=== PATIENT | male | born 1940 | race Caucasian/White ===

== ENCOUNTER 2017-08-03 21:27 | Inpatient (IN) | payer MEDICARE, OTHER ==
[~2017-08-03] VITALS: Ht 188 cm; Wt 104.6 kg
--- NOTE | ~2017-08-03 | HEMODYNAMI ---
PATIENT:NICOLAS BYERS MEDICAL RECORD: [id number] : 42 LOCATION:[place] [address] ADMISSION DATE: 08/04/17 Generatedon:08/07/201713:58 Patient name: NICOLAS BYERS Patient #: [id number] SSN: : 1940 Date of study: 08/07/2017 Page: Of Hemodynamic Procedure Report Patient Data Patient Demographics Procedure consent was obtained First Name: NICOLAS Gender: Male Last Name: ZEESHAN : 1940 Middle Initial: TIERNEY Age: 77 year(s) Patient #: [id number] Race: Unknown Additional ID: [id number] Contact details [address]: [address] [place] [address] State: [place] City: [place] Zip code: [address] Past Medical History Allergies: No known allergies Admission Admission Data Admission Date: 08/04/2017 Admission Time: 0:50 Admit Source: Other Room #: D.2134 Height (in.): 73.62 BSA: 2.16 (m2) Height (cm.): 187 BMI: 25.74 (kg/m2) Weight (lbs.): 198.42 Weight (kg.): 90 Procedure Procedure Types Cath Procedure Diagnostic Procedure PPM/ICD Permanent Pacer Generator Exg. Miscellaneous Procedures Moderate Sedation up to 15 minutes Procedure Description Procedure Date Procedure Date: 08/07/2017 Procedure Start Time: 13:27 Procedure Staff Name Function Ceferino Quiros MD Performing Physician Terese Patel RT Scrub Desiree Stanley RT Monitor Jonna Ellis RN Nurse Farrukh Obando MD Performing Physician Procedure Medications Medication Administration Route Dosage Oxygen NC 2 l/min Bupivacaine 0.5% S.Q. ml Ancef Irrigation Topical 1 g (1gm/500ml NS) Ancef (1Gm/50ml NS) I.V.P.B 1 g Fentanyl I.V. 25 mcg Versed I.V. 1 mg Fentanyl I.V. 25 mcg Zofran I.V. 4 mg Hemodynamics Rest BSA: 2.16 (m2) O2 Consumption: Estimated: 242.86 (ml/min) O2 Consumption indexed : Estimated:112.44 (ml/min/m) Heart Rate: 64 (bpm) Snapshots Pre Cath Intra NCS Post Cath Vital Signs Time Heart Resp SPO2 NIBP (mmHg) Rhythm Pain Sedation Rate (ipm) (%) Status Level (bpm) 13:12:41 65 18 94 159/83(133) NSR 0 (11) 10(A) , No pain 13:17:09 65 18 96 144/83(123) NSR 0 (11) 9(A) , No pain 13:21:33 65 19 97 137/84(122) NSR 0 (11) 9(A) , No pain 13:25:56 65 16 98 148/82(123) NSR 0 (11) 9(A) , No pain 13:30:20 75 16 97 144/85(120) NSR 0 (11) 9(A) , No pain 13:35:29 60 16 86 180/103(156) NSR 0 (11) 9(A) , No pain 13:40:08 60 20 98 193/99(149) NSR 0 (11) 9(A) , No pain 13:44:30 60 16 100 160/93(143) NSR 0 (11) 9(A) , No pain 13:50:18 61 16 100 184/98(159) NSR 0 (11) 9(A) , No pain 13:54:18 61 17 No Cuff NSR 0 (11) 9(A) , No pain 13:58:17 No Cuff NSR 0 (11) 9(A) , No pain Medications Time Medication Route Dose Verified Delivered Reason Notes Effective ness by by 13:16:22 Oxygen NC 2 Jonna Jonna used for l/min Ellis Ellis end polisher RN 13:16:47 Bupivacaine S.Q. ml Jonna Jonna used for 0.5% Ellis Ellis end polisher RN 13:19:24 Ancef Topical 1 g Jonna Jonna used for Irrigation Ellis Ellis procedure (1gm/500ml RN RN NS) 13:25:27 Ancef I.V.P.B 1 g Jonna Jonna Per (1Gm/50ml Ellis Ellis physician NS) RN RN 13:28:06 Fentanyl I.V. 25 Jonna Jonna for mcg Ellis Ellis sedation RN RN 13:28:19 Versed I.V. 1 mg Jonna Jonna for Ellis Ellis sedation RN RN 13:33:23 Fentanyl I.V. 25 Jonna Jonna for mcg Ellis Ellis sedation RN RN 13:40:24 Zofran I.V. 4 mg Jonna Jonna Per Rhonda Ellis physician RN toll bridge operator Log Time Note 12:51:58 Patient Height : 73.62 inches 12:52:02 Patient Weight : 198.42 lbs 12:52:06 Admit Source: Other 12:53:13 Diagnostic Cath status Elective 12:53:16 Desiree Stanley RT(R) sent for patient. Start room use. 12:53:17 Time tracking: Regular hours 12:53:23 Plan of Care:Hemodynamics will remain stable., Cardiac rhythm will remain stable., Comfort level will be maintained., Respiratory function will remain adequate., Patient/ family verbilizes understanding of procedure., Procedure tolerated without complication., Recovers from procedure without complications.. 12:53:40 Medtronic Adapta PPM Single Generator [id number] opened to sterile field. 13:07:36 Patient received from Med II to CCL 3 Alert and oriented. Tansferred to table in Supine position. 13:07:37 Warm blankets applied, and janet hugger turned on for patient comfort. 13:07:38 Correct patient and procedure confirmed by team. 13:07:39 Signed procedure consent form obtained from patient. 13:07:41 ECG and BP/O2 sat monitors applied to patient. 13:11:14 Vital chart was started 13:11:21 Baseline sample Acquired. 13:11:29 Full Disclosure recording started 13:11:56 H&P Date Dictated: 08/03/2017 Within 30 days and on chart.. 13:11:58 Pre-procedure instructions explained to patient. 13:11:59 Family in waiting room. 13:12:01 Patient NPO since Midnight. 13:12:09 Patient allergic to No known allergies 13:12:12 Is the patient allergic to Iodine/contrast media? No. 13:12:14 Is patient on blood thinner?Yes 13:12:18 ACC The patient was administered the following blood thiners within the last 24 hours: Xarelto 13:12:25 Patient diabetic? Yes. 13:12:26 If diabetic: On Metformin? Yes 13:12:53 Snore? Yes 13:12:55 Sleep apnea? No 13:13:03 Dentures? No ? 13:13:08 Patient pain scale 0/10 ?. 13:13:14 IV patent on arrival in left hand with 0.9% NaCl at O. 13:13:18 Lab results completed and on chart. 13:13:26 Left chest area was prepped with chlora-prep and draped in sterile fashion 13:13:27 Alarms reviewed by R. N. 13:13:28 Sharps counted by scrub and verified by R.N. 13:13:28 Physician paged 13:13:29 Physician arrived 13:13:30 --------ALL STOP TIME OUT------ 13:13:30 Final Timeout: patient, procedure, and site verified with staff and physician. All members of the team are in agreement. 13:13:34 Left chest site verified by team. 13:13:40 Sedation plan: IV Moderate Sedation Versed, Fentanyl 13:16:22 Oxygen 2 l/min NC was administered by Jonna Ellis RN; used for procedure; 13:16:47 Bupivacaine 0.5% ml S.Q. was administered by Jonna Ellis RN; used for procedure; 13:17:34 Use device set Pacemaker Set 13:19:24 Ancef Irrigation (1gm/500ml NS) 1 g Topical was administered by Jonna Ellis RN; used for procedure; 13:23:10 Cautery Tip [employer] Porter opened to sterile field. 13:23:11 Cautery Pushbutton Pencil opened to sterile field. 13:23:16 3.0 Vicryl Multipack [id number] opened to sterile field. 13:23:17 3.0 Vicryl Single Pack [id number] opened to sterile field. 13:23:21 2.0 Silk [id number] opened to sterile field. 13:24:54 Medtronic nutrition representative MARCUS CONLEYOE present for procedure. 13:25:27 Ancef (1Gm/50ml NS) 1 g I.V.P.B was administered by Jonna Ellis RN; Per physician; 13:27:35 Pre sharps counted by scrub and verified by RN: Sutures: 14 Sponges: 5 Stick needles: 0 Skin needles: 2 Blade: 1 Cautery: 1 13:27:40 Procedure started. 13:27:53 Grounding pad site Left thigh. 13:27:55 Grounding pad site free from injury. 13:28:06 Fentanyl 25 mcg I.V. was administered by Jonna Ellis RN; for sedation; 13:28:06 Lidocaine 1% w/epi and Bupivacaine 0.5% to left subclavicular area by Farrukh Obando MD. 13:28:19 Versed 1 mg I.V. was administered by Jonna Ellis RN; for sedation; 13:28:36 Incision made to left subclavicular area. 13:28:43 Generator pocket made/opened. 13:33:23 Fentanyl 25 mcg I.V. was administered by Jonna Ellis RN; for sedation; 13:40:24 Zofran 4 mg I.V. was administered by Jonna Ellis RN; Per physician; 13:42:11 Ventricular lead tested. 13:42:37 PPM Single was attached to lead(s) and inserted into pocket. 13:42:43 PPM Single was inserted subcutaneously to left chest. 13:42:50 Device pocket was irrigated with Ancef. 13:43:34 Subcutaneous closure was completed with 3-0 vicryl plus. 13:43:44 Skin closure was completed with 3-0 vicryl. 13:56:26 Parameters-- Generator: Mode: vvir. Lower Rate: 60bpm. Upper Rate: 130bpm. 13:57:07 Parameters--Ventricular P/R Wave: 8.1mV. Current: .5mA; Threshold: .5V; Impedence: 688OHMS. 13:57:12 Lt Chest incision was dressed with Mepilex dressing. 13:58:36 Vital chart was stopped Device Usage Item Name Manufacture Quantity Catalog Hospital Part Current Minimal Lot # / Number Charge Number Stock Stock Serial# Code Medtronic Medtronic 1 [id number] [id number] 5 Adapta PPM [id number] Single EXP .0 Generator 09/30 ADSR01 Cautery Microtek 1 [id number] [id number] 5 [employer] Autom[employer] Porter Cautery Microtek 1 [id number] [id number] [facility]. Pencil 3.0 Vicryl Ethicon 1 [id number] [id number] 529268 5 Multipack [id number] 3.0 Vicryl Ethicon 1 [id number] 104489 162023 5 Single Pack [id number] 2.0 Silk Ethicon 1 [id number] 66853 092315 5 685H Signature [place] Stage Time Signature Unsigned Intra-Procedure 08/07/2017 Desiree Stanley 1:58:33 PM RT(R) Signatures Monitor : Desiree Stanley Signature : RT Date : Time : [place] [address] [place] [address]
[~2017-08-03 21:27] MED LIST: AUGMENTIN 875-11 TAB PO; BAYER CHEWABLE81 MG PO; COUMADIN3 MG PO; COUMADIN4 MG; COUMADIN4 MG PO; DOXYCYCLINE HY100 M2 PO; GLUCOPHAGE1000 MG PO; HYDROCODONE-APA1 TAB PO; LANTUS INSULIN10 ML SC; LASIX20 MG PO; METOPROLOL TAR100 M1 PO; PLAVIX75 MG PO; PRAVACHOL40 MG PO; PRINIVIL20 MG PO; RESTORIL7.5 MG PO; ULTRAM50 MG PO; ZANTAC150 MG PO
[2017-08-03 22:35] LABS: BASOPHILS 0.2 % (0-2); EOSINOPHILS 2.8 % (0-7); HEMATOCRIT 43.1 % (42.0-54.0); HEMOGLOBIN 14.7 g/dL (13.5-17.5); IMMATURE GRANULOCYTES 0.4 % (0-5); LYMPHOCYTES 13.5 % (15-50); MCH 31.3 pg (26.0-34.0); MCHC 34.1 g/dL (31.0-37.0); MCV 91.9 fL (80.0-100.0); MEAN PLATELET VOLUME 10.4 fL (7.4-10.4); MONOCYTES 7.6 % (2-11); NEUTROPHILS 75.5 % (40-80); PLATELET COUNT 148 10x3/uL (130-400); RBC 4.69 10x6/uL (4.20-6.10); RDW 13.6 % (11.5-14.5); WBC 9.3 10x3/uL (4.8-10.8)
[2017-08-03 22:50] LABS: ALBUMIN 3.9 g/dL (3.4-5.0); ALKALINE PHOSPHATASE 49 U/L (46-116); ALT (SGPT) 29 U/L (10-68); CALC OSMOLALITY 285 mosm/kg (275-300); CALCIUM 9.2 mg/dL (8.5-10.1); CHLORIDE - SERUM 102 mmol/L (98-107); CREATININE - SERUM 0.9 mg/dL (0.6-1.3); MAGNESIUM - SERUM 1.8 mg/dL (1.8-2.4); PROTEIN - SERUM 7.8 g/dL (6.4-8.2); SODIUM 137 mmol/L (136-145); UREA NITROGEN 21 mg/dL (7-18); eGFR NON AFRICAN AMERICAN 87 mL/min (90-120)
[2017-08-03 22:52] LABS: GLUCOSE 258 mg/dL (74-106)
[2017-08-03 22:53] LABS: POTASSIUM - SERUM 5.8 mmol/L (3.5-5.1)
[2017-08-04 00:15] LABS: APPEARANCE CLEAR (CLEAR); BILIRUBIN NEGATIVE (NEGATIVE); COLOR YELLOW (YELLOW); GLUCOSE 1000 mg/dL (NEGATIVE); KETONE SMALL mg/dL (NEGATIVE); NITRITE NEGATIVE (NEGATIVE); PROTEIN 1+ mg/dL (NEGATIVE); UROBILINOGEN NORMAL (NORMAL)
[2017-08-04 00:22] LABS: AMORPHOUS SEDIMENT <1+ /lpf (NONE SEEN); BACTERIA MODERATE /hpf (NONE SEEN); EPITHELIAL CELLS 0-5 /hpf (0-5); GRANULAR CAST RARE /lpf (NONE SEEN); HYALINE CAST RARE /lpf (NONE SEEN); WHITE CELLS - URINE 0-5 /hpf (0-5)
[2017-08-04 00:27] LABS: CREATINE KINASE 246 UL (21-232); PRO BNP 1157 pg/mL (0-450)
[2017-08-04 00:30] LABS: TROPONIN-I < 0.017 ng/mL (0.000-0.060)
--- NOTE | 2017-08-04 01:36 | NUR ---
RECEIVED REPORT FROM SUJEY LOMAX, FROM ER, PT IS WITH HIM, PT IS ONLY ALERT TO PERSON, SAID EMT HAD PT HOME MEDS, WAITING FOR SUJEY LOMAX TO CALL BACK, 02-2L, IV-R.HAND, PLACED ON TATY ALARM, BED IS LOW, SRX2, CALL LIGHT IN REACH, IS STAYING THE NIGHT
--- NOTE | 2017-08-04 03:25 | NUR ---
PT SLEEPING, AT BEDSIDE, TATY ALARM IS ON, FALL BRACLET AND SOCKS ARE ON, WILL CONTINUE PLAN OF CARE, CALL LIGHT IN REACH
[2017-08-04 05:06] VITALS: BP 131/64
[2017-08-04 06:01] VITALS: BMI 25.7
[2017-08-04 07:02] LABS: INR 3.78 (0.85-1.17); PROTIME 37.8 SECONDS (11.6-15.0)
--- NOTE | 2017-08-04 07:15 | NUR ---
RECIEVED REPORT ON PATIENT, PATIENT IS SLEEPING AT THIS TIME, NAD NOTED. CHEST RISES AND FALLS EQUALLY. PATIENT IS AT BEDSIDE. PATIENT HAS A R HAND IV THAT IS SL AT THIS TIME. VILLANUEVA CATHETER IS SECURE WITH STAT LOCK, AND DRAINING YELLOW URIEN IN DRAINAGE BAG. DENIES ANY NEEDS. BED LOW AND LOCKED. CPOC
[2017-08-04 08:00] VITALS: BP 127/66
--- NOTE | 2017-08-04 09:15 | NUR ---
MORNING MEDICATIONS GIVEN, HUMULIN GIVEN LATE DUE TO PHARMACY JUST BRING UP. FSBS WAS 265, 6 UNITS GIVEN. PATIENT DENIES ANY NEEDS. CPOC
--- NOTE | 2017-08-04 11:30 | NUR ---
FSBS 303, 8 UNITS OF HUMULIN GIVEN. PATIENT SITTING UP IN CHAIR AT THIS TIME. DENIES ANY NEEDS. CPOC
[2017-08-04 12:00] VITALS: BP 116/66
--- NOTE | 2017-08-04 12:30 | NUR ---
PATIENT SITTING UP IN CHAIR, ASKED IF PATIENT WAS READY BACK FOR BED, HE STATED HE WAS FINE. CPOC
--- NOTE | 2017-08-04 14:09 | NUR ---
IV RESITED TO L HAND, 20 G, 2 ATTEMPTS. CPOC
--- NOTE | 2017-08-04 14:44 | NUR ---
PATIENT REFUSING TO WEAR SCDS AT THIS TIME. CPOC
[2017-08-04 16:00] VITALS: BP 107/73
--- NOTE | 2017-08-04 16:00 | NUR ---
PATIENT SITTING UP IN CHAIR, FAMILY AT BEDSIDE. DENIES ANY NEEDS. CPOC
--- NOTE | 2017-08-04 17:42 | NUR ---
PATIENT SITTING IN CHAIR AT BEDSIDE WITH FAMILY MEMBERS PRESENT. DRESSING REMOVED FROM LEFT FOREARM. SKIN TEAR CLEANED AND MEPILEX DRESSING APPLIED. NO COMPLAINTS OR REQUESTS AT THIS TIME. CPOC
--- NOTE | 2017-08-04 18:00 | NUR ---
PATIENT GOT NAUSEATAED AND STATES HE DOESN'T FEEL WELL, ZOFRAN GIVEN, BP CHECKED 104/53, PATIENT PUT ON TELEMETRY. FSBS 221, WILL CONT OTMONITOR PATIENT. FAMILY AT BEDSIDE
--- NOTE | 2017-08-04 18:24 | NUR ---
VILLANUEVA CATHETER PULLED. NO ISSUES. CPOC
--- NOTE | 2017-08-04 19:48 | NUR ---
RESUMED CARE OF PT, LYING IN BED WITH EYES CLOSED RESPIRATIONS EVEN AND UNLABORED ON ROOM AIR. 65 PACED ON TELEMETRY. CALL LIGHT IN REACH, TATY ALARM ON. WILL CONTINUE TO MONITOR. SEE NURSE ASSESSMENT.
[2017-08-04 20:00] VITALS: BP 117/64
--- NOTE | 2017-08-04 22:18 | NUR ---
NIGHT MEDS GIVEN, 4 UNIT OF REGULAR AND 10 UNITS LANTUS FOR A FSBS OF 205. CALL LIGHT IN REACH. WILL CONTINUE TO MONITOR.
[2017-08-05] VITALS: BP 99/36
--- NOTE | 2017-08-05 01:31 | NUR ---
IVPB INITIATED. IV IS POSITIONAL, BUT PATENT. CALL LIGHT IN REACH. WILL CONTINUE TO MONITOR.
--- NOTE | 2017-08-05 05:27 | NUR ---
NO CHANGES FROM PREVIOUS ASSESSMENT, CALL LIGHT IN REACH. RESTED WELL. 65 PACED ON TELEMETRY
[2017-08-05 06:47] LABS: INR 2.62 (0.85-1.17); PROTIME 28.2 SECONDS (11.6-15.0)
--- NOTE | 2017-08-05 07:15 | NUR ---
RECIEVED REPORT ON PATIENT, PATIENT IS ALERT AND ORIENTED AT THIS TIME. PATIENT IS PACED ON THE MONITOR WITH A RATE OF 65. PATIENT HAS A L HAND IV THAT IS SL AT THIS TIME. PATIENT DENIES ANY NEEDS OR COMPLAINTS AT THIS TIME. WILL CONT TO MONITOR PATIENT. CPOC
--- NOTE | 2017-08-05 07:43 | HP ---
PATIENT: NICOLAS BYERS MEDICAL RECORD: [id number] ACCOUNT: [id number] LOCATION:[address] : 42 ADMISSION DATE: 08/04/17 HISTORY AND PHYSICAL EXAMINATION REASON FOR ADMISSION: Fall with concussion and confusion. HISTORY OF PRESENT ILLNESS: The patient is a 77-year-old male with history of metabolic syndrome, chronic atrial fibrillation and left carotid occlusive disease whose said he has been slowly going gradually down from mental status standpoint. She said he has made some bad decisions and recently bought a new pickup truck and traded his own without consulting her. She states yesterday he seemed much more drowsy. He slept on his chair all afternoon and then got up to go the bathroom and then said he went to the bathroom and went to the master bedroom bathroom and fell, hitting everything in the room. She said he did hit his head. She did not notice he had loss of consciousness at that point. She called EMS. Blood sugar was checked by EMS, was 222. He was brought to the Emergency Room. He was confused there. Had no localizing new neurologic signs otherwise. He now complains of a left frontal headache that is moderate from his fall. He is currently oriented, but drowsy. PAST MEDICAL HISTORY: AODM, chronic atrial fibrillation, coronary artery disease, aortic stenosis, post-AVR, peripheral neuropathy, essential hypertension, obesity, history of left MCA T[place] [address] [facility] aortic valve replacement in 2013 and 2-vessel CABG, remote right carotid endarterectomy, and hyperlipidemia. PAST SURGICAL HISTORY: Right CEA on 12/2013 [facility] aortic valve replacement, cholecystectomy. The valve replacement was in 2013. SOCIAL HISTORY: He is . He is a nonsmoker. His is a retired attorney lawyer. He has been independent with ADLs up until this admission. ALLERGIES: None known. MEDICATIONS: Pravastatin 40 mg at h.s., Lopressor 100 mg b.i.d., Pepcid 20 mg b.i.d., aspirin 81 mg a day, sotalol 80 mg p.o. q.12 hours, Lantus 30 units subcu q.h.s., metformin ER 1000 mg p.o. b.i.d., lisinopril 10 mg p.o. daily, warfarin 4 mg at 5 p.m. daily. REVIEW OF SYSTEMS: GENERAL: He has been fatigued for the last 24 hours. No fever. HEENT: No recent visual change, sinus congestion, or sore throat. He has a left frontal headache from his fall. RESPIRATORY: Denies shortness of breath, sputum production, or cough. CARDIAC: Denies exertional chest pain, claudication or edema. GASTROINTESTINAL: No nausea or vomiting. GENITOURINARY: Nocturia once nightly. ENDOCRINE: Denies polyuria, polydipsia, heat or cold intolerance. NEUROLOGIC: He denies any mental status issues. Those his disagrees. He has headache from his fall. No history of seizure. Known history of TIA and known left carotid stenosis. He had CTA in 2015 and did not show surgical disease. No history of migraines. MUSCULOSKELETAL: Chronic lumbago without sciatica. ENDOCRINE: Denies polyuria or polydipsia. HISTORY AND PHYSICAL [id number] NICOLAS BYERS PSYCHIATRIC: Denies depression. PHYSICAL EXAMINATION: VITAL SIGNS: Temperature 97.3 Fahrenheit orally, pulse 64, respirations are 20, and blood pressure is 187/96 with a sat 97% on room air. Height 6 feet, weight 250 pounds, BMI of 33.9. GENERAL: The patient appears drowsy, but does awaken and answer question appropriately. HEENT: Normocephalic. Eyes are clear. He has some bruising on the left frontal forehead area. Oropharynx unremarkable. NECK: Vein bruit in left carotid, right is clear. CHEST: Clear. HEART: Regular rate without murmur. ABDOMEN: Obese, soft, and nontender. GENITOURINARY: Unremarkable. EXTREMITIES: Knees have crepitus with flexion and extension bilaterally. He has no peripheral edema. He has stasis macular skin changes on both feet. NEUROLOGIC: The patient is oriented to person, place, and time. Can tell me his date. He knows my name. He has good homicide squad commanding officer in the upper extremities. Good strength in lower extremities. Babinski are negative. His gait is somewhat unsteady. IMAGING: CT of the head without contrast shows complete opacification of the right aspect of the frontal sinus and partial opacification of the ethmoid cells, no intracranial abnormalities are appreciated, arteriosclerotic vascular calcifications are noted. CT cervical spine, multilevel degenerative changes in the cervical spine. LABORATORY DATA: White count 9000, H&H of 14 and 43. Normal differential. BMP was not obtained in the ER. His blood sugar was 265. Lactic acid 1.5. Ammonia was 13. Urine shows small ketones, 10-25 RBCs, moderate bacteria. INR is 3.78. EKG shows paced rhythm. ASSESSMENT: 1. Altered mental status post fall, possible concussion. 2. History of left carotid occlusive disease. 3. Metabolic syndrome. 4. Hematuria. 5. Paroxysmal atrial fibrillation. 6. Sick sinus syndrome. 7. Aortic stenosis post valve replacement. 8. Diabetic neuropathy. PLAN: Neuro checks, telemetry. We will hold Coumadin today. He will have neuro and cardiology consults as well. Culture urine. Further workup pending clinical course. TRANSINT:[id number] Voice Confirmation ID: [id number] DOCUMENT ID: [id number] HISTORY AND PHYSICAL [id number] NICOLAS BYERS TIMOTHY MD at 0743 CC: [id number] DICTATION DATE: 08/04/17 0839 BOX PRESS OPERATOR: 08/04/17 1109 ADM IN [facility] [address] [place] [address]
[2017-08-05 08:00] VITALS: BP 112/95
--- NOTE | 2017-08-05 09:05 | NUR ---
MORNING MEDICATION GIVEN. DENIES ANY NEEDS. CPOC
--- NOTE | 2017-08-05 09:13 | NUR ---
SPOKE WITH DR CORTEZ OFFICE REGARDING CONSULT. FAXED H AND P AND FACESHEET
--- NOTE | 2017-08-05 11:11 | NUR ---
PATIENT LAYING IN BED WITH FAMILY AT BEDSIDE. SKIN TEAR CLEANED AND MEPILEX DRESSING APPLIED. NO COMPLAINTS OR NEEDS AT THIS TIME. WILL CONTINUE TO MONITOR. CPOC
[2017-08-05 12:00] VITALS: BP 136/74
--- NOTE | 2017-08-05 12:00 | NUR ---
PATIENT SITTING UP IN BED. FSBS 260, 6 UNITS OF INSULIN GIVEN IN RIGHT ARM. NO COMPLAINTS OR REQUESTS AT THIS TIME. BED IN LOWEST POSITION AND LOCKED. CALL LIGHT IN REACH. CPOC
[2017-08-05 13:43] VITALS: Ht 188 cm; Wt 104.6 kg
--- NOTE | 2017-08-05 14:25 | NUR ---
PATIENT RESTING IN BED,M FAMILY AT BEDSIDE. PATIENT DENIES ANY NEEDS. CPOC
--- NOTE | 2017-08-05 15:05 | NUR ---
PATIENT SITTING ON THE SIDE OF THE BED. WOUND ON LEFT FOREARM CLEANSED AND MEPILEX DRESSING APPLIED. NO COMPLAINTS OR REQUESTS AT THIS TIME. BED IN LOWEST POSITION AND LOCKED. CALL LIGHT IN REACH. CPOC.
--- NOTE | 2017-08-05 15:38 | NUR ---
SPOKE WITH DR RODRIGUEZ REGARDING PATIENT, DR BASS WAS WONDERING WHAT THE PLAN WAS WITH PATIENT, DR RODRIGUEZ STATED THAT THEY ARE GOING TO TAKE HIM BACK TOMORROW AND REPLACE THE BATTERY AND THE LEAD THAT IS DISLODGE. WILL NOTIFY PATIENT. CPOC
--- NOTE | 2017-08-05 15:52 | NUR ---
PATIENT TRANSPORTED VIA WHEELCHAIR TO CT BY IMAGING.
[2017-08-05 16:00] VITALS: BP 106/66
--- NOTE | 2017-08-05 16:23 | NUR ---
PATIENT SITTING IN CHAIR AT BEDSIDE. FAMILY AT BEDSIDE. REPORT RECEIVED FROM [employer]. ADVISED IV INFILTRATED WITH APPROX 30ML NORMAL SALINE. INSTRUCTIONS REVIEWED WITH PATIENT AND FAMILY. ALL QUESTIONS ANSWERED. LEFT ARM ELEVATED AND ICE APPLIED. VOICED UNDERSTANDING TO ALTERNATE TO PUT ICE ON FOR 15 MINUTES AND OFF 15 MINUTES.
--- NOTE | 2017-08-05 17:00 | NUR ---
PATIENT SITTING IN CHAIR AT BEDSIDE, IN ANOTHER CHAIR AT BEDSIDE. NEW IV STARTED IN RIGHT FOREARM. WILL CONTINUE TO MONITOR. CPOC.
--- NOTE | 2017-08-05 18:32 | NUR ---
PATIENT SITTING IN CHAIR AT BEDSIDE, IN ANOTHER CHAIR AT BEDSIDE. PATIENT LAS LEFT ARM PROPPED UP WITH ICE PACK APPLIED TO LEFT WRIST/HAND. STATES HE HAS BEEN LEAVING ICE PACK ON FOR 15 MIN AND OFF FOR 15 MINS AT A TIME. STATES HIS WRIST IS FEELING BETTER. CALL LIGHT IN REACH. CPOC
--- NOTE | 2017-08-05 18:35 | NUR ---
PATIENT SITTING IN CHAIR AT BEDSIDE, IN ANOTHER CHAIR AT BEDSIDE. NEW IV STARTED IN RIGHT FOREARM. WILL CONTINUE TO MONITOR. CPOC.
--- NOTE | 2017-08-05 19:36 | NUR ---
ASSESSMENT COMPLETE, A&O, SITTING UP IN CHAIR WATCHING TV. RESPERATIONS EVEN ON RA. IV TO RIGHT FOREARM SL, SITE CLEAN AND DRY. PT DENIES PAIN OR NEEDS, CL IN REACH.
--- NOTE | 2017-08-05 20:58 | NUR ---
HS MEDS GIVEN WITH FRESH ICE WATER, BS 292, COVERED PER S/S. PT DENIES PAIN OR NEEDS, BED LOW, CL IN REACH.
[2017-08-05 22:18] VITALS: BP 111/56
[2017-08-06 02:50] VITALS: BP 124/68
--- NOTE | 2017-08-06 03:35 | NUR ---
RESTING WITH EYES CLOSED, RESPERATIONS EVEN, NO S/S DISTRESS NOTED.
--- NOTE | 2017-08-06 04:07 | NUR ---
PT STANDING IN ROOM DOOR WAY, ASKING FOR THE NURSE TO COME TO THE ROOM, UPON ENTERING ROOM, BLOOD SPATTER ALL OVER THE FLOOR. PT STATED THAT " WHEN I GOT UP TO THE BATH ROOM I FELT SOMETHING TUG ON MY ARM AND THEN I NOTICED SOMETHING BLEEDING" IV TO LEFT ARM WITH CATHTER IN TACT, HOWEVER THE TUBING HAD BEEN BROKEN IN HALF AND BLOOD WAS STEADILY POURING OUT, GRABBED WASH CLOTH AND APPLIED PRESSURE, REMOVED IV CATH, TIP INTACT, CLEANED UP PT AND FLOOR, CHANGED LINENS ON BED AND ASSISTED PT INTO THE SHOWER. WILL RESITE IV CATH AFTER SHOWER IS DONE.
--- NOTE | 2017-08-06 05:18 | NUR ---
IV RESITED TO INNER RIGHT FOREARM, 22 GUAGE, FIRST ATTEMPT, PT TOLERATED WELL.
[2017-08-06 05:35] VITALS: BP 131/67
--- NOTE | 2017-08-06 07:47 | NUR ---
AM ROUNDS - PT IS IN BED AND AWAKE AT THIS TIME. NON SKID SOCKS ON. YELLOW BAND ON. MONITOR SHOWING PACE AT 65. PT IS ON ROOM AIR. IV TO RIGHT FA. SL. TATY MAT ON. PT REFUSES SCD. BED AT LOWEST POSTION. CALL CALZADA IN USE/REACH. SIDE RAILS UP X2. NO NEEDS AT THIS TIME. WILL CONTINUE TO MONITOR
[2017-08-06 08:32] VITALS: BP 144/69
[2017-08-06 12:34] VITALS: BP 116/65
[2017-08-06 16:31] VITALS: BP 129/74
--- NOTE | 2017-08-06 17:48 | NUR ---
PT IN THE CHAIR AT THIS TIME. FAMILY AT BEDSIDE. NO NEEDS.
--- NOTE | 2017-08-06 19:41 | NUR ---
PATIENT IS ALERT AND IN BED, RR, CALL LIGHT IN REACH. TATY MAT IN TACT.
[2017-08-06 20:00] VITALS: BP 112/72
[2017-08-07 04:00] VITALS: BP 119/80
--- NOTE | 2017-08-07 05:25 | NUR ---
PT RESTING COMFORTABLY, CONTINUE TO MONITOR CLOSELY.
[2017-08-07 06:16] LABS: BASOPHILS 0.2 % (0-2); EOSINOPHILS 3.8 % (0-7); HEMATOCRIT 40.5 % (42.0-54.0); HEMOGLOBIN 13.8 g/dL (13.5-17.5); IMMATURE GRANULOCYTES 0.2 % (0-5); LYMPHOCYTES 25.8 % (15-50); MCH 31.2 pg (26.0-34.0); MCHC 34.1 g/dL (31.0-37.0); MCV 91.6 fL (80.0-100.0); MONOCYTES 14.8 % (2-11); NEUTROPHILS 55.2 % (40-80); PLATELET COUNT 155 10x3/uL (130-400); RBC 4.42 10x6/uL (4.20-6.10); RDW 13.2 % (11.5-14.5); WBC 8.4 10x3/uL (4.8-10.8)
[2017-08-07 06:30] LABS: INR 1.36 (0.85-1.17); PROTIME 16.6 SECONDS (11.6-15.0)
[2017-08-07 06:32] LABS: ANION GAP 10.3 mmol/L (8-16); CALCIUM 9.1 mg/dL (8.5-10.1); CREATININE - SERUM 1.2 mg/dL (0.6-1.3); POTASSIUM - SERUM 4.3 mmol/L (3.5-5.1)
[2017-08-07 08:00] VITALS: BP 135/76
--- NOTE | 2017-08-07 08:07 | NUR ---
AM ROUNDS - PT IS IN BED AND AWAKE AT THS TIME. FAMILY AT BEDSIDE. TATY MAT BED ALARM ON AND WORKING. IV TO MARY ANNE BATISTA. PT IS ON ROOM AIR. PT REFUSES SCD. MONITOR NOT WORKING. ISAI NORMAN TECH NOTIFIED AND TRIED TO TROUBLE SHOOT. MONITOR NOT WORKING AND NO MONITORS ARE AVAILABLE. BED AT LOWEST POSITION. CALL CALZADA IN USE/REACH. SIDE RAILS UP X2. NO NEEDS AT THIS TIME. WILL CONTINUE OT MONITOR
--- NOTE | 2017-08-07 09:48 | NUR ---
CONCENTS ARE SIGNED AND PLACED IN CHART. WILL CONTINUE TO MONITOR
[2017-08-07 17:26] VITALS: BP 162/77
--- NOTE | 2017-08-07 18:01 | NUR ---
Patient Name: CHAU BYERS Admission Status: ER Accout number: [id number] Admission Date: 08-04-2017 : 1940 Admission Diagnosis:SYNCOPE AND COLLAPSE Attending: MITALI BASS Current LOS: 3 Anticipated DC Date: 08-08-2017 Planned Disposition: Inpatient Rehab Primary Insurance: MEDICARE A & B PLANNED EXTERNAL PROVIDER: INPATIENT REHAB Discharge Planning Comments: * Is the patient Alert and Oriented? Yes 0 * How many steps to enter\exit or inside your home? 2 0 * PCP DR. BASS 0 * Pharmacy [facility] [address] 0 * Preadmission Environment Home with Family 0 * ADLs Independent 0 * Equipment Cane 0 * Other Equipment COMPANY IN [place] - PROVIDER PREFERENCE 0 * List name and contact numbers for known caregivers / representatives who currently or will assist patient after discharge: KIARA BYERS, SPOUSE, 0 * Community resources currently utilized None 0 * Please name any agencies selected above. NONE 0 * Additional services required to return to the preadmission environment? No 0 * Can the patient safely return to the preadmission environment? Yes 0 * Has this patient been hospitalized within the prior 30 days at any hospital? No 0 CM MET WITH PT AND SPOUSE IN ROOM TO DISCUSS DISCHARGE PLANNING AND NEEDS. PT SLEPT AND SPOUSE PARTICIPATED IN DISCHARGE PLANNING. PT LIVES AT HOME INDEPENDENTLY WITH SPOUSE. PT HAS CANES AND IF FURTHER MEDICAL EQUIPMENT IS NEEDED, THEY WOULD SHOP AROUND FOR USED EQUIPMENT OR USE THE COMPANY IN [place]. PT HAS NO OUTSIDE SERVICES ASSISTING IN THE HOME. CM DISCUSSED AVAILABILITY OF HOME HEALTH, REHAB SERVICES AND MEDICAL EQUIPMENT. PT'S SPOUSE IS CONCERNED THAT SHE IS NOT ABLE TO HANDLE PT AT HOME AND BELIEVES HE MAY FALL AT HOME; CM DISCUSSED REHAB LOCATIONS AND PROVIDERS; SHE WILL CONSIDER INPATIENT OR CARE HOME REHAB AND TALK TO THE DOCTOR ABOUT WHAT THE DOCTOR RECOMMENDS. SPOUSE DOES NOT THINK THAT PT WILL WANT TO GO TO A CARE HOME FACILITY; CM PROVIDED CHOICE LISTINGS FOR HOME HEALTH AND CARE HOME REHABS. SPOUSE REPORTS SHE WILL PICK PT UP FOR DISCHARGE HOME. IMPORTANT MESSAGE FROM MED[employer]ARE PROVIDED AND EXPLAINED PT'S SPOUSE CONSIDERING INPATIENT REHAB, CARE HOME REHAB OR HOME HEALTH THERAPY FOR PT'S DISCHARGE. Director Digital Catalogue: Chau Fabian
[2017-08-07 22:49] VITALS: BP 115/60
--- NOTE | 2017-08-07 23:30 | NUR ---
PATIENT IS ASLEEP IN BED, RR, CALL LIGHT IN REACH.
[2017-08-08] VITALS: BP 110/53
--- NOTE | 2017-08-08 00:16 | NUR ---
PLUGGING MACHINE OPERATOR AT BEDSIDE, CALL LIGHT IN REACH. WILL CONTINUE WITH PLAN OF CARE. 60 PACED ON TELEMETRY
[2017-08-08] MEDS ORDERED: LISINOPRIL10 MG PO (07:26)
[2017-08-08] MEDS ORDERED: BETAPACE 80 MG80 MG PO (07:26)
[2017-08-08 08:00] VITALS: BP 138/63
--- NOTE | 2017-08-08 12:13 | NUR ---
FSBS 385 PROVIDED PT WITH 10 UNITS PER SS INSULIN. PT STATES HE DOESNT KNOW DIABETES OR DIETS OR S/S OF HYPER AND HYPO SO RASHID PROVIDED HIM AND FAMILY WITH VERBAL TEACHING AND PRINTED OUT SOME SHEETS FOR REFERENCES. D/C PTS R.FA PIV WITH CATH TIP FULLY INTACT. DISCHARGE TEACHING PROVIDED AND PAPERS SIGNED. FAMILY AT BEDSIDE FOR TRANSPORTATION. PT WOULD LIKE TO FINISH EATING THEN WILL BE LEAVING. NO FURTHER NEEDS AT THIS TIME.
--- NOTE | 2017-08-08 15:21 | NUR ---
Patient Name: CHAU BYERS Encounter No: [id number] : 1940 Primary Insurance: MEDICARE A & B Anticipated DC Date: 08-08-2017 Planned Disposition: Home with Home Health External Planned Provider: [facility] LATE ENTRY: DCP follow-up note: CM RECEIVED DISCHARGE ORDER, SPOKE TO PT AND SPOUSE IN ROOM, DISCUSSED REHAB OPTIONS AND HOME HEALTH. PT DENIES NEED OF MEDICAL EQUIPMENT, DOES NOT WANT GROUP HOME REHAB. PT WANTS TO GO HOME, WILL ACCEPT HOME HEALTH. CHOICE LISTING PROVIDED AND DISCUSSED. PT AND SPOUSE CHOSE [facility]. CHOICE SIGNED. PT'S SPOUSE WILL TRANSPORT HOME TODAY AT DISCHARGE. CM CALLED GALINDO AT [facility], , THEY HAVE NURSING AVAILABILITY FOR TOMORROW. CM PROVIDED REFERRAL TO [facility], FAXED REFERRAL TO [phone]. Chau Fabian, CASE MANAGEMENT
--- NOTE | 2017-08-13 09:40 | OP ---
PATIENT NAME: NICOLAS BYERS MEDICAL RECORD: [id number] :[birth year] LOCATION:D.[facility].2134 ADMISSION DATE:08/04/17 SURGEON: RUKHSANA MCCRACKEN MD DATE OF OPERATION: 08/07/2017 PRINCIPAL DIAGNOSIS: Pacemaker generator at end of life. POSTOPERATIVE DIAGNOSIS: Pacemaker generator at end of life. PROCEDURE: Pacemaker generator change out. SURGEON: Rukhsana Mccracken MD POULTRY TENDER: None. BLOOD LOSS: Minimal. ANESTHESIA: Local with IV sedation. A consent form was signed. OPERATIVE COURSE: The patient was conveyed to the cardiac catheterization laboratory on 08/07/2017. IV sedation was induced by the nursing staff under my direction. The left chest was sterilely prepped and draped. A local anesthetic was used to infiltrate the skin and subcutaneous tissues overlying the pacemaker generator. I excised the old scar. I then dissected down to the pacemaker generator. I incised into the pseudo bursa. The pacemaker generator was delivered in its entirety. I unscrewed the atrial lead and then capped off. I unscrewed the ventricular lead and pulled out the ventricular lead and it was at this point that we determined that the patient is totally pacemaker dependent. His rate dropped down to almost asystole. I very quickly placed the ventricular lead into the new pacemaker generator, which is a single account leader and then tightened down on the lead. I tried to dislodge the lead, but was unable to do so. The patient had an episode of agitation as well as an episode of nausea around this event. The pacemaker was placed back in the port pocket. The deep adipose tissue was closed with interrupted 3-0 Vicryl sutures. The subcutaneous adipose tissue was closed with interrupted 3-0 Vicryls. The skin was approximated with a running intracuticular 3-0 Vicryl. A sterile dressing was applied. The patient was then conveyed back to his room. I have written a prescription for hydrocodone. I will see the patient on a p.r.n. basis. TRANSINT:[id number] Voice Confirmation ID: [id number] DOCUMENT ID: [id number] RUKHSANA MCCRACKEN MD at 0940 CC: MITALI BASS MD and MICHELLE CARD MD [id number] DICTATION DATE: 08/07/17 1410 REBEAMER: 08/07/17 1502 DIS IN 08/08/17 [facility] [address] [facility] [address]
== END 2017-08-08 13:39 | disposition home health service (06) | DRG 259 ==
LOC: D.ER 21:27 → D.M2 08-04 00:50
PROVIDERS: Emergency Medicine; Surgery; ADMIT Family Medicine
PROC: 0JH606Z Insertion of Pacemaker, Dual Chamber into Chest Subcutaneous Tissue and Fascia, Open Approach (ICD-10-PCS; 2017-08-07)
PROC: 0JPT0PZ Removal of Cardiac Rhythm Related Device from Trunk Subcutaneous Tissue and Fascia, Open Approach (ICD-10-PCS; principal; 2017-08-07 12:00)
DX: I49.5 Sick sinus syndrome (principal); F05 Delirium due to known physiological condition; S06.0X9A Concussion with loss of consciousness of unspecified duration, initial encounter; Z45.010 Encounter for checking and testing of cardiac pacemaker pulse generator [battery]; E88.81 Metabolic syndrome and other insulin resistance; Z79.01 Long term (current) use of anticoagulants; I48.0 Paroxysmal atrial fibrillation; E78.5 Hyperlipidemia, unspecified; I10 Essential (primary) hypertension; E66.9 Obesity, unspecified; E11.42 Type 2 diabetes mellitus with diabetic polyneuropathy; W19.XXXA Unspecified fall, initial encounter; R51 Headache; I65.22 Occlusion and stenosis of left carotid artery; Z95.2 Presence of prosthetic heart valve; Z86.73 Personal history of transient ischemic attack (TIA), and cerebral infarction without residual deficits; Z87.891 Personal history of nicotine dependence

== ENCOUNTER 2017-09-14 19:09 | Emergency (ER) | payer MEDICARE, OTHER ==
[2017-08-05 13:43] VITALS: BMI 25.6
[~2017-09-14 19:09] MED LIST changes: +BETAPACE 80 MG80 MG PO; +LISINOPRIL10 MG PO
[2017-09-14 19:35] LABS: BASOPHILS 0.3 % (0-2); EOSINOPHILS 5.2 % (0-7); HEMATOCRIT 40.4 % (42.0-54.0); HEMOGLOBIN 13.6 g/dL (13.5-17.5); IMMATURE GRANULOCYTES 0.2 % (0-5); LYMPHOCYTES 29.6 % (15-50); MCH 31.3 pg (26.0-34.0); MCHC 33.7 g/dL (31.0-37.0); MCV 93.1 fL (80.0-100.0); MONOCYTES 13.8 % (2-11); NEUTROPHILS 50.9 % (40-80); PLATELET COUNT 134 10x3/uL (130-400); RBC 4.34 10x6/uL (4.20-6.10); RDW 13.6 % (11.5-14.5); WBC 6.2 10x3/uL (4.8-10.8)
[2017-09-14 19:42] LABS: APTT 39.1 SECONDS (22.8-39.4); INR 2.77 (0.85-1.17); PROTIME 28.5 SECONDS (11.6-15.0)
[2017-09-14 20:02] LABS: ALBUMIN 3.7 g/dL (3.4-5.0); ANION GAP 12.5 mmol/L (8-16); BILIRUBIN - TOTAL 1.5 mg/dL (0.2-1.3); CALCIUM 9.3 mg/dL (8.5-10.1); CARBON DIOXIDE 28.2 mmol/L (21.0-32.0); CREATININE - SERUM 1.1 mg/dL (0.6-1.3); POTASSIUM - SERUM 4.7 mmol/L (3.5-5.1); PROTEIN - SERUM 7.5 g/dL (6.4-8.2)
[2017-09-14 20:06] LABS: TROPONIN-I 0.021 ng/mL (0.000-0.060)
== END 2017-09-14 20:56 | disposition home or self-care (01) ==
LOC: D.ER 19:09
PROVIDERS: Emergency Medicine
DX: G45.9 Transient cerebral ischemic attack, unspecified (principal); E11.9 Type 2 diabetes mellitus without complications; I10 Essential (primary) hypertension

== ENCOUNTER 2017-09-16 01:54 | Inpatient (IN) | payer MEDICARE, OTHER ==
[~2017-09-16] VITALS: Ht 188 cm; Wt 109.1 kg
[2017-09-16 02:01] LABS: BASOPHILS 0.3 % (0-2); EOSINOPHILS 5.6 % (0-7); HEMATOCRIT 42.5 % (42.0-54.0); HEMOGLOBIN 14.7 g/dL (13.5-17.5); IMMATURE GRANULOCYTES 0.3 % (0-5); LYMPHOCYTES 28.6 % (15-50); MCH 31.8 pg (26.0-34.0); MCHC 34.6 g/dL (31.0-37.0); MONOCYTES 12.6 % (2-11); NEUTROPHILS 52.6 % (40-80); PLATELET COUNT 110 10x3/uL (130-400); RBC 4.62 10x6/uL (4.20-6.10); RDW 13.7 % (11.5-14.5); WBC 6.1 10x3/uL (4.8-10.8)
[2017-09-16 02:14] LABS: ALBUMIN 3.9 g/dL (3.4-5.0); BILIRUBIN - TOTAL 1.6 mg/dL (0.2-1.3); CALCIUM 9.6 mg/dL (8.5-10.1); CARBON DIOXIDE 28.5 mmol/L (21.0-32.0); CREATININE - SERUM 1.2 mg/dL (0.6-1.3); PROTEIN - SERUM 8.3 g/dL (6.4-8.2)
[2017-09-16 02:15] LABS: ANION GAP 13.7 mmol/L (8-16); INR 2.84 (0.85-1.17); PROTIME 29.1 SECONDS (11.6-15.0)
[2017-09-16 02:22] LABS: APTT 28.5 SECONDS (22.8-39.4)
[2017-09-16 02:43] LABS: APPEARANCE CLEAR (CLEAR); BILIRUBIN NEGATIVE (NEGATIVE); COLOR YELLOW (YELLOW); GLUCOSE 500 mg/dL (NEGATIVE); KETONE SMALL mg/dL (NEGATIVE); NITRITE NEGATIVE (NEGATIVE); PROTEIN NEGATIVE (NEGATIVE); SPECIFIC GRAVITY 1.015 (1.005-1.020); UROBILINOGEN NORMAL (NORMAL)
[2017-09-16 02:54] LABS: CKMB 1.8 U/L (0.0-3.6); CREATINE KINASE 110 UL (21-232); POTASSIUM - SERUM 4.1 mmol/L (3.5-5.1); TROPONIN-I 0.018 ng/mL (0.000-0.060)
--- NOTE | 2017-09-16 06:30 | NUR ---
RECEIVED FROM ER, PROVIDE INFORMATION, TELEMTRY IS ON, IV-LAC, BED IS LOW, SRX2, CALL LIGHT IN REACH
[2017-09-16 06:31] VITALS: BP 169/83
--- NOTE | 2017-09-16 07:30 | NUR ---
RECIEVED REPORT ON PATIENT, PATIENT IS RESTING AT THIS TIME. IS AT BEDSIDE. PATIENT HAS A L AC IV WITH NS INFUSING AT 150ML/HR. PATIENT IS PACED ON THE MONITOR WITH A RATE OF 73. DENIES ANY NEEDS AT THIS TIME. BED IS LOW AND LOCKED. CALL LIGHT IN REACH. CPOC
--- NOTE | 2017-09-16 08:00 | NUR ---
PATIENT IS CONFUSED, TRYING TO CLIMB OUT OF BED, UNSTABLE GAIT. PATIENT PUT BACK IN BED, [facility] REOIRENTED PATIENT THAT HE WAS IN THE HOSPITAL AND THAT HENEEDED TO STAY IN BED, STATES UNDERSTANDING. WILL CONT TO MONITOR. CPOC
[2017-09-16 08:02] VITALS: BP 155/102
--- NOTE | 2017-09-16 09:20 | NUR ---
PATIENT FSBS 283. HELD INSULIN PER FAMILY REQUEST DUE TO PATIENT BEING NPO. WILL CONT TO MONITOR. CPOC
--- NOTE | 2017-09-16 12:00 | NUR ---
PATIENT FSBS WAS 343. 6 UNITS OF HUMULIN GIVEN INSTEAD OF 12 UNITS DUE TO PATIENT BEING NPO. PATIENT STATES PATIENT MIGHT BOTTOM OUT IF ALL 12 UNITS WERE TO BE GIVEN. WILL CONT TO MONITOR PATIENT. CPOC
[2017-09-16 13:05] VITALS: BP 149/68
[2017-09-16 14:09] VITALS: Ht 188 cm; Wt 109.1 kg
--- NOTE | 2017-09-16 14:18 | NUR ---
PATIENT IS SLEEPING, NAD NOTED. AROUSES TO VOICE. PATIENT IS STILL CONFUSED. BED IS LOW AND LOCKED. CALL LIGHT IN REACH. CPOC
[2017-09-16 16:31] VITALS: BP 126/54
--- NOTE | 2017-09-16 16:50 | NUR ---
PATIENT FSBS 214. 4 UNITS OF HUMULIN GIVEN PER PATIENT REQUEST INSTEAD OF 8 UNITS, WILL CONT TO MONITOR. CPOC
--- NOTE | 2017-09-16 17:09 | NUR ---
PATIENT EATING DINNER, DENIES ANY NEEDS AT THIS TIME, CPOC
--- NOTE | 2017-09-16 18:12 | NUR ---
ROUNDS MADE, INFORMED PATIENT, SHIFT CHANGE WAS NEAR. PATIENT DENIES ANY NEEDS AT THIS TIME. CPOC. AT BEDSIDE
[2017-09-16 19:00] VITALS: BP 140/59
--- NOTE | 2017-09-16 19:15 | NUR ---
RECEIVED REPORT, WILL ASSUME CARE OF PT, PT IS STILL VERY SLEEPY,FAMILY AT BED SIDE, FAMILY PULL 4TH BED RAIL UP, TATY ALARM IS ON, BED IS LOW, CALL LIGHT IN REACH, WILL CONTINUE PLAN OF CARE
--- NOTE | 2017-09-16 20:09 | NUR ---
BLOODSUGAR-189, WILL COVER 4 UNITS HUMULIN R
[2017-09-17 04:00] VITALS: BP 162/74
--- NOTE | 2017-09-17 04:20 | NUR ---
PT PULLED IV OUT, RESITED 20G. TO L.HAND 1ST ATTEMPT, [place] ASSISTED WITH SHOWER AND LINEN CHANGE, WILL CONTINUE PLAN OF CARE
[2017-09-17 06:16] LABS: BASOPHILS 0.1 % (0-2); HEMATOCRIT 38.4 % (42.0-54.0); HEMOGLOBIN 12.9 g/dL (13.5-17.5); IMMATURE GRANULOCYTES 0.1 % (0-5); LYMPHOCYTES 26.5 % (15-50); MCH 30.9 pg (26.0-34.0); MCHC 33.6 g/dL (31.0-37.0); MCV 91.9 fL (80.0-100.0); MONOCYTES 12.6 % (2-11); NEUTROPHILS 57.7 % (40-80); PLATELET COUNT 132 10x3/uL (130-400); RBC 4.18 10x6/uL (4.20-6.10); RDW 13.7 % (11.5-14.5); WBC 7.2 10x3/uL (4.8-10.8)
[2017-09-17 06:40] LABS: ANION GAP 11.9 mmol/L (8-16); CALCIUM 8.8 mg/dL (8.5-10.1); CARBON DIOXIDE 26.2 mmol/L (21.0-32.0); CREATININE - SERUM 1.1 mg/dL (0.6-1.3); POTASSIUM - SERUM 4.1 mmol/L (3.5-5.1)
[2017-09-17 07:22] LABS: INR 3.06 (0.85-1.17); PROTIME 30.9 SECONDS (11.6-15.0)
--- NOTE | 2017-09-17 07:28 | HP ---
PATIENT: NICOLAS BYERS MEDICAL RECORD: [id number] ACCOUNT: [id number] LOCATION:[address] : [birth year] ADMISSION DATE: 09/16/17 HISTORY AND PHYSICAL EXAMINATION REASON FOR ADMISSION: Difficulty speaking and confusion. HISTORY OF PRESENT ILLNESS: The patient is a 77-year-old male with history of paroxysmal atrial fibrillation, tissue aortic valve replacement in 2013 with coronary artery bypass grafting. The patient had a pacemaker end of life battery exchange a month ago without problems, but he had a fall and hit his head with concussion. He seemed to have recovered from that. The patient's says that the day before admission, he had some confusion and trouble speaking. She says his words were all garbled. They got in the car to come to the hospital, his speech cleared up, came anyway and had an INR checked it was over 2.6 and he was discharged home. The patient then yesterday afternoon developed recurrent trouble with expressive aphasia and he seems somewhat angry because he was having difficulty speaking. He presented back to the Emergency Room at 10:00 p.m. last evening, blood pressure was 164/138. He was in paced rhythm. Emergent CT scan of the brain did not show evidence of infarct. He is admitted for further evaluation. The patient has developed some nausea throughout the night, received Phenergan and at this time he is sleeping, somewhat hard to arouse due to medication side effects. His states that his balance was fine and he had no other symptomatology. The patient has had a previous right carotid endarterectomy in 2013. Additionally, he had a carotid Doppler a month ago that showed stable postoperative changes in the right carotid arteries. The plaque was identified in the left carotid bifurcation, approaching 50% to 69%. A CTA was performed to evaluate the left carotid showing heavy calcification bulb, but finds consistent with less than 50% stenosis of the left ICA slightly progressed from previous CTA. Percent stenosis was noted at 33%. PAST MEDICAL HISTORY: Severe aortic stenosis post-aortic valve [place] [address] Evans; recent fall with concussion; chronic atrial fibrillation; peripheral neuropathy; diabetes mellitus, fair control; essential hypertension; obesity; coronary artery bypass grafting; hyperlipidemia; recurrent right foot ulcer. Sick sinus syndrome with pacemaker placement and recent battery generator replacement in July 2017. PAST SURGICAL HISTORY: Right CEA 0n 12/2013; aortic valve replacement with [employer]. Maninder bovine valve 2013 with 2-vessel CABG, cholecystectomy. SOCIAL HISTORY: , nonsmoker, is a retired claim attorney. ALLERGIES: None known. HOME MEDICATIONS: Coumadin 4 mg p.o. at 1500 hours daily, lisinopril 10 mg daily, metoprolol 100 mg p.o. b.i.d., pravastatin 40 mg at h.s., sotalol 80 mg p.o. b.i.d., aspirin 81 mg daily, Zantac 150 b.i.d., Lantus insulin 10 units subq with evening meal, metformin 1000 mg p.o. b.i.d. REVIEW OF SYSTEMS: Obtained from the . GENERAL: Generally, he had felt well up until speech disturbance yesterday. She denied any recent fever or weight change, poor appetite. HEENT: No recent visual change, headache. Speech as mentioned above. HISTORY AND PHYSICAL [id number] NICOLAS BYERS GASTROINTESTINAL: He has had nausea since being admitted to the hospital, none prior to that. No change in stools or blood per rectum. CARDIAC: No palpitations or chest pain or increasing edema. RESPIRATORY: Denies shortness of breath. GENITOURINARY: Nocturia once nightly. ENDOCRINE: Denies polyuria or polydipsia. NEUROLOGIC: Speech disturbance, trouble expressing himself for the last 24 hours intermittently. No recent gait abnormalities. INTEGUMENT: No rash and foot ulcer has improved recently. PSYCHIATRIC: No evidence of depressed mood. PHYSICAL EXAMINATION: VITAL SIGNS: His blood pressure 164/38, now 169/83; heart rate is 70; respirations are 18; temperature 99.3; sats 94% on 2 liters. GENERAL: The patient is somewhat somnolent, currently after Phenergan administration. HEENT: His pupils were equal and reactive. Sclerae nonicteric. Oropharynx unremarkable. NECK: Faint bruit on the left carotid, right is clear. CHEST: Clear. HEART: Regular rate with a mechanical valve murmur. ABDOMEN: Obese, soft, nontender. Bowel sounds are active. GENITOURINARY: Unremarkable. EXTREMITIES: No CC&E. NEUROLOGICAL: The patient is moving all extremities without motor deficits. He opens his eyes and he goes back to sleep to verbal command. LABORATORY DATA: White count 6000, H&H of 14 and 42. Chemistry shows potassium of 4.1, sodium of 137, BUN and creatinine is 18 and 1.2, glucose 252, bilirubin 1.6. Cardiac enzymes initially negative. INR 2.84. Urine negative except for urine glucose of 500. Blood gas showed a pH of 7.427, pCO2 of 74, pCO2 of 34. EKG shows paced rhythm. CT noncontrast of the brain shows no acute intracranial abnormalities; however, there is some mild cerebral volume loss with enlarged on the ventricles and sulci. ASSESSMENT: 1. Expressive aphasia, suggesting right middle cerebral artery, transient ischemic attack versus stroke. 2. History of chronic atrial fibrillation. 3. History of aortic valve replacement. 4. Coronary artery disease. 5. Sick sinus syndrome with pacemaker. 6. Adult-onset diabetes mellitus. 7. Left carotid stenosis. PLAN: The patient is admitted for neurology evaluation by Dr. Carrera. CTA done just last month shows less than 33% left carotid stenosis and right carotid appears clear. Further workup pending clinical course. TRANSINT:[id number] Voice Confirmation ID: [id number] DOCUMENT ID: [id number] HISTORY AND PHYSICAL [id number] NICOLAS BYERS TIMOTHY MD at 0728 CC: [id number] DICTATION DATE: 09/16/17 0753 COATER ASSOCIATE: 09/16/17 1017 ADM IN [address] [place] [address]
--- NOTE | 2017-09-17 07:40 | NUR ---
AM ROUNDS - PT IS AWAKE AND IN BED AT THIS TIME. AT BEDSIDE. MONITOR SHOWING PACE, HR 60. PT ON 2L O2 VIA NC. IV TO LEFT HAND, NS AT 125CC/HR. BED AT LOWEST POSITION. CALL CALZADA IN USE/REACH. SIDE RAILS UP X2. WILL CONTINUE TO MONITOR
[2017-09-17 08:52] VITALS: BP 154/73
[2017-09-17 12:12] VITALS: BP 127/70
[2017-09-17] MEDS ORDERED: MAG-OX 400 MG400 MG PO (13:21)
[2017-09-17] MEDS ORDERED: VITAMIN B-1100 M1 PO (13:22)
--- NOTE | 2017-09-17 14:41 | NUR ---
Patient Name: CHAU BYERS Admission Status: ER Accout number: [id number] Admission Date: 09-16-2017 : 1940 Admission Diagnosis: Attending: KURT LAIRD Current LOS: 1 Anticipated DC Date: 09-17-2017 Planned Disposition: Home Primary Insurance: MEDICARE A & B Discharge Planning Comments: * Is the patient Alert and Oriented? Yes 0 * How many steps to enter\exit or inside your home? 2 0 * PCP DR. BASS 0 * Pharmacy [facility] [address] * Preadmission Environment Home with Family 0 * ADLs Independent 0 * Equipment Cane Rolling Walker 0 * Other Equipment COMPANY IN [place] - MEDICAL EQUIPMENT PROVIDER PREFERENCE 0 * List name and contact numbers for known caregivers / representatives who currently or will assist patient after discharge: KIARA BYERS, SPOUSE, 0 * Community resources currently utilized None 0 * Please name any agencies selected above. NONE 0 * Additional services required to return to the preadmission environment? No 0 * Can the patient safely return to the preadmission environment? Yes 0 * Has this patient been hospitalized within the prior 30 days at any hospital? No 0 CM MET WITH PT IN ROOM TO DISCUSS DISCHARGE PLANNING AND NEEDS. PT REPORTS LIVING AT HOME INDEPENDENTLY WITH SPOUSE. PT HAS CANE AND ROLLING WALKER. PT HAS NO OUTSIDE SERVICES ASSISTING IN THE HOME. CM DISCUSSED AVAILABILITY OF HOME HEALTH, REHAB SERVICES AND MEDICAL EQUIPMENT. PT DENIES DISCHARGE NEEDS, STATES THAT HOME HEALTH SIGNED OFF LAST SATURDAY AND HE DOES NOT NEED THEM ANY LONGER. PT REPORTS HIS SPOUSE IS ON THE WAY TO PICK HIM UP FOR DISCHARGE HOME. DOCTOR CHIROPRACTIC NURSE NOTIFIED. Bias Cutting Machine Operator: Chau Fabian
--- NOTE | 2017-09-17 15:24 | NUR ---
IV DC'D WITH TIP INTACT. COVERED WITH 2X2 GAUZE AND SECURED WITH TAPE. TOLERATED WELL
--- NOTE | 2017-09-17 15:34 | NUR ---
D/C - WRITTEN AND VERBAL D/C INSTRUCTIONS GIVEN TO PT AND . IV TO LEFT HAND D/C, CATH TIP INTACT, 2X2 DRESSING APPLIED AND SECURED WITH TAPE, PT TOLERATED WELL. PT LEFT FLOOR VIA WHEELCHAIR WITH VOLUNTEER. WILL D/C
--- NOTE | 2017-09-25 15:46 | EC ---
PATIENT:NICOLAS BYERS DATE OF SERVICE: 09/16/17 SEX: M MEDICAL RECORD: [id number] DATE OF : [birth year] LOCATION:D.M2 D.213 AGE OF PATIENT: 77 ADMISSION DATE: 09/16/17 REFERRING PHYSICIAN: INTERPRETING PHYSICIAN: MICHELLE VALDEZ MD ECHOCARDIOGRAM REPORT ECHO CHARGES 4 ECHO COMPLETE CLINICAL DIAGNOSIS: TIA ECHOCARDIOGRAPHIC MEASUREMENTS (adult normal given) AC root (d.<3.7cm) 4.0 cm LV Septum d (<1.2 cm> 1.9 cm Valve Excursion 1.8 cm LV Septum (systole) 3.2 cm Left Atria (s.<4.0cm> 4.4 cm LVPW d(<1.2cm) 1.8 cm RV (d.<2.3cm) 3.2 cm LVPW (sytole) 3.0 cm LV diastole(<5.6CM) 6.3 cm MV E-F(>70mm/sec) cm LV systole 3.6 cm LVOT Diameter 1.9 cm MV exc.(>10mm) cm Est.ejection fraction (50-75%) % Pericardial Effusion N DOPPLER: LVIT cm/sec A cm/sec E 117 cm/sec LA cm/sec RVSP 51.0 mmHg LVOT 82.0 cm/sec AOP1/2T m/s Asc. Ao 172 cm/sec RVOT 62.0 cm/sec RA cm/sec PA 92.0 cm/sec AV Gradient Peak 12.0 mmHg AV Mean 5.7 mmHg AV Area 1.5 cm MV Gradient Peak 8.6 mmHg MV Mean 2.5 mmHg MV Area cm COMMENTS: Clinical Science Liaison: Radha TAYLORDSOE Chemist Steroids: 1 Dr. Valdez TAPE# PACS DATE OF SERVICE: 09/16/2017 Echocardiogram FINDINGS: 1. Left ventricular chamber size is mildly dilated. Left ventricular systolic function is mildly reduced, overall ejection fraction 40%. 2. Left atrium is enlarged at 4.4 cm. Right atrium and right ventricular chamber sizes are as well mildly dilated. 3. Valvular structures have normal structure and motion. ECHOCARDIOGRAM REPORT [id number] NICOLAS BYERS 4. Doppler interrogation reveals mild mitral regurgitation, moderate tricuspid regurgitation, no other valvular insufficiency or stenosis. Pulmonary systolic pressure, however, is elevated at 51 mmHg. 5. No evidence of pericardial effusion or left ventricular thrombus. TRANSINT:[id number] Voice Confirmation ID: [id number] DOCUMENT ID: [id number] MICHELLE VALDEZ MD at 1546 CC: [id number] DICTATION DATE: 09/16/17 1127 CONVEYOR TENDER: 09/16/17 1141 DIS IN 09/17/17 [facility] [address] [id number]
== END 2017-09-17 15:54 | disposition home or self-care (01) | DRG 69 ==
LOC: D.ER 01:54 → D.M2 05:28
PROVIDERS: Family Medicine; ADMIT Family Medicine
DX: G45.9 Transient cerebral ischemic attack, unspecified (principal); I69.820 Aphasia following other cerebrovascular disease; R40.2143 Coma scale, eyes open, spontaneous, at hospital admission; R40.2363 Coma scale, best motor response, obeys commands, at hospital admission; R40.2253 Coma scale, best verbal response, oriented, at hospital admission; I65.22 Occlusion and stenosis of left carotid artery; F03.90 Unspecified dementia, unspecified severity, without behavioral disturbance, psychotic disturbance, mood disturbance, and anxiety; I48.0 Paroxysmal atrial fibrillation; Z79.01 Long term (current) use of anticoagulants; E11.40 Type 2 diabetes mellitus with diabetic neuropathy, unspecified; I10 Essential (primary) hypertension; E66.9 Obesity, unspecified; I25.10 Atherosclerotic heart disease of native coronary artery without angina pectoris; E78.5 Hyperlipidemia, unspecified; Z95.2 Presence of prosthetic heart valve; Z95.1 Presence of aortocoronary bypass graft; Z87.891 Personal history of nicotine dependence

== ENCOUNTER 2017-09-16 01:54 | Emergency (ER) | payer MEDICARE, OTHER ==
[2017-09-17] MEDS ORDERED: MAG-OX 400 MG400 MG PO (13:21)
[2017-09-17] MEDS ORDERED: VITAMIN B-1100 M1 PO (13:22)
== END 2017-09-16 05:26 | disposition home or self-care (01) ==
LOC: D.ER 01:54
DX: G45.9 Transient cerebral ischemic attack, unspecified (principal); I69.820 Aphasia following other cerebrovascular disease; R40.2143 Coma scale, eyes open, spontaneous, at hospital admission; I65.22 Occlusion and stenosis of left carotid artery; I48.0 Paroxysmal atrial fibrillation

== ENCOUNTER → 2017-10-02 15:47 | Outpatient (CLI) | payer MEDICARE, OTHER ==
[~2017-10-02 15:47] MED LIST changes: +MAG-OX 400 MG400 MG PO; +VITAMIN B-1100 M1 PO
== END | disposition home or self-care (01) ==
LOC: D.US 10-01 13:00
DX: I65.23 Occlusion and stenosis of bilateral carotid arteries (principal)

== ENCOUNTER 2018-04-10 23:33 | Inpatient (IN) | payer MEDICARE, OTHER ==
[~2018-04-10] VITALS: Ht 188 cm; Wt 106.1 kg
--- NOTE | ~2018-04-10 | HP ---
PATIENT: NICOLAS BYERS MEDICAL RECORD: [id number] ACCOUNT: [id number] LOCATION:D.[facility] [id number] : 41 ADMISSION DATE: 04/11/18 HISTORY AND PHYSICAL EXAMINATION REASON FOR ADMISSION: Fever and left foot pain. HISTORY OF PRESENT ILLNESS: The patient is a 78-year-old male with metabolic syndrome, who sees Dr. Muir and Dr. Silva for diabetic foot wounds. He states he had had his left lateral foot wound debrided at Dr. Muir's office 2 days prior to admission, it was quite painful. Yesterday, he fell asleep in his recliner and when he awakened, his dog had fallen out of his lap. He was trying to pick the dog up, he slipped and fell on the floor and could not get up. He remained there for about 4 hours, developed 101 fever. When his came home, she called EMS and brought him to the Emergency Room. He denied cough, chest pain, or dysuria. PAST MEDICAL HISTORY: History of diabetes mellitus, TIA, vertigo, aortic stenosis with valve replacement, history of basal cell carcinoma, skin cancers on his head, history of gallbladder disease, cellulitis of left leg, chronic diabetic foot ulcer, sick sinus syndrome with pacemaker, hypertension, hyperlipidemia, and GERD. PAST SURGICAL HISTORY: Pacemaker placement, aortic valve replacement, cataract extract bilaterally. He has had local wound debridements on his feet bilaterally. Cholecystectomy, history of atrial fibrillation chronic, CVA with carotid stenosis. FAMILY HISTORY: Parents are , had cardiovascular disease and lung disease. SOCIAL HISTORY: He is , former smoker, nondrinker, he is retired. HOME MEDICATIONS: Coumadin 4 mg at 5 p.m. daily, Lopressor 100 mg b.i.d., pravastatin 40 mg at bedtime, lisinopril 10 mg a day, sotalol 80 mg b.i.d., aspirin 81 mg daily, ranitidine 150 mg p.o. b.i.d., magnesium oxide 400 mg p.o. daily, metformin 1000 mg p.o. b.i.d. a.c., Lantus insulin 10 units subcutaneous at bedtime, and multivitamin, thiamine B1 at 100 mg tablet p.o. daily. ALLERGIES: None known. REVIEW OF SYSTEMS: GENERAL: Fevers occurring yesterday at 101. Denies recent weight change or poor appetite. HEENT: No recent visual change, sinus congestion, or sore throat. RESPIRATORY: No SOB or cough. CARDIAC: No chest pain, claudication, or edema. GASTROINTESTINAL: No nausea, vomiting, change in stools, or blood per rectum. GENITOURINARY: Nocturia twice nightly. ENDOCRINE: Denies polyuria, polydipsia, heat or cold intolerance. NEUROLOGIC: Remote history of stroke and TIA with history of carotid stenosis, 30% in the left carotid. No history of seizures. He has chronic neuropathy and numbness involving his both feet. PSYCHIATRIC: Denies depressed mood. INTEGUMENT: He has had erythema of the lateral aspect of the left foot. HISTORY AND PHYSICAL [id number] NICOLAS BYERS PHYSICAL EXAMINATION: VITAL SIGNS: Temperature is 101, pulse 86 and regular, respirations are 18, blood pressure 119/41 with an O2 sat of 96% on room air. HEENT: Normocephalic. Eyes are clear with lens implants bilaterally. Sclerae nonicteric. NECK: No bruits or masses. CHEST: Clear. HEART: Regular rate with a II/ aortic murmur noted. There is a click. ABDOMEN: Soft, obese, nontender. GENITOURINARY: Deferred. EXTREMITIES: He has a nickel-sized stage II decubitus in the left lateral distal metatarsal with surrounding erythema. His right third toe shows small ulceration as well with bandage placed bilaterally. Skin shows a diabeticorum rash on both lower extremities, mid tib to the ankles. A significant edema is appreciated. LABORATORY DATA: Blood sugar is 226. INR is 2.04. White count is 14,000 with left shift, platelet count is 168,000, H&H is 12.4 and 35.7 respectively. Nonfasting bilirubin is 2.73. Troponin was 0.142. EKG shows paced rhythm, no acute changes. Chest x-ray was not performed. ASSESSMENT: Fever, diabetic foot wounds left greater than right with early cellulitis, AODM, history of aortic valve replacement, chronic atrial fibrillation, sick sinus syndrome with pacemaker, hypertension, hyperlipidemia. PLAN: The patient will be admitted for serial cardiac enzymes, culture blood and urine, IV antibiotics, wound consult. TRANSINT:[id number] Voice Confirmation ID: [id number] DOCUMENT ID: [id number] MITALI BASS MD at 0704 CC: [id number] DICTATION DATE: 04/11/18 08 SET UP MECHANIC STAMPING MACHINES: 04/11/18 0908 ADM IN [place] [id number] [place] [id number]
--- NOTE | ~2018-04-10 | HEMODYNAMI ---
PATIENT:NICOLAS BYERS MEDICAL RECORD: [id number] : 42 LOCATION:[facility].2235 ADMISSION DATE: 04/11/18 Generatedon:04/24/201813:19 Patient name: NICOLAS BYERS Patient #: [id number] SSN: : 1940 Date of study: 04/24/2018 Page: Of Hemodynamic Procedure Report Patient Data Patient Demographics Procedure consent was obtained First Name: NICOLAS Gender: Male Last Name: ZEESHAN : 1940 [facility] Initial: TIERNEY Age: 78 year(s) Patient #: [id number] Race: Unknown Additional ID: [id number] Contact details Address: [address] [place] [address] State: [place] City: [place] Zip code: [address] Past Medical History Allergies: No known allergies Admission Admission Data Admission Date: 04/11/2018 Admission Time: 2:09 Room #: [facility]5 Height (in.): 73.62 BSA: 2.31 (m2) Height (cm.): 187 BMI: 30.31 (kg/m2) Weight (lbs.): 233.69 Weight (kg.): 106 Lab Results Lab Result Date: 04/24/2018 Lab Result Time: 0:00 Biochemistry Name Units Result Min Max BUN mg/dl 13 --(--*-)-- 7 18 Creatinine mg/dl 1 --(--*-)-- 0.6 1.3 CBC Name Units Result Min Max Hemoglobin g/dl 36 --(----)-* 13.5 17.5 Procedure Procedure Types Cath Procedure Diagnostic Procedure KJ Procedure Description Procedure Date Procedure Date: 04/24/2018 Procedure Start Time: 12:04 Procedure Staff Name Function Ceferino Perrin MD Performing Physician Desiree Stanley RT Monitor Pietro Oliva Production Support Supervisor Adia Ji RN Nurse Farrukh Zurita MD Additional personnel Procedure Data Cath Procedure Estimated blood loss: 0 ml Procedure Complications No complications Procedure Medications Medication Administration Route Dosage Oxygen etCO2 Nasal cannula 2 l/min Hurricaine Gardner P.O. 1 Sprays Refer to Anesthesia Notes for Sedation Medications Hemodynamics Rest BSA: 2.31 (m2) HGB: 36 (g/dl) O2 Consumption: Estimated: 258.25 (ml/min) O2 Cons umption indexed: Estimated:111.8 (ml/min/m) Heart Rate: 62 (bpm) Snapshots Pre Cath Intra NCS Post Cath Vital Signs Time Heart Resp SPO2 etCO2 NIBP (mmHg) Rhythm Pain Sedation Rate (ipm) (%) (mmHg) Status Level (bpm) 12:51:45 62 18 99 23.9 184/83(141) NSR 0 (11) 10(A) , No pain 12:55:43 63 24 99 30.7 176/98(140) NSR 0 (11) 10(A) , No pain 13:00:28 61 16 99 24.7 194/114(162) NSR 0 (11) 9(A) , No pain 13:04:25 60 37 98 19.4 137/78(111) NSR 0 (11) 9(A) , No pain 13:08:27 63 33 97 33.7 130/69(100) NSR 0 (11) 10(A) , No pain 13:13:26 68 22 94 19.4 121/70(99) NSR 0 (11) 10(A) , No pain 13:17:23 61 22 96 24.7 129/68(93) NSR 0 (11) 10(A) , No pain Medications Time Medication Route Dose Verified Delivered Reason Notes Effectiv eness by by 12:50:37 Oxygen etCO2 2 Ceferino Cheek used for Nasal l/min St Miles Ji RN procedure cannula 12:50:46 Hurricaine P.O. 1 Ceferino Cheek Per Gardner Sprays St Miles Ji RN physician 12:50:50 Refer to Ceferino Cheek Anesthesia St Miles Ji RN Notes for Sedation Medications Procedure Log Time Note 12:49:06 Patient Height : 73.62 inches 12:49:11 Patient Weight : 233.69 lbs 12:49:52 Lab Result : BUN 13 mg/dl 12:49:52 Lab Result : Hemoglobin 36 g/dl 12:49:52 Lab Result : Creatinine 1 mg/dl 12:50:23 Vital chart was started 12:50:32 Diagnostic Cath status Elective 12:50:35 Desiree Jaden RT(R) sent for patient. Start room use. 12:50:36 Time tracking: Regular hours (M-F 7:00 - 5:00) 12:50:37 Oxygen 2 l/min etCO2 Nasal cannula was administered by Adia Ji RN; used for procedure; 12:50:43 Plan of Care:Hemodynamics will remain stable., Cardiac rhythm will remain stable., Comfort level will be maintained., Respiratory function will remain adequate., Patient/ family verbilizes understanding of procedure., Procedure tolerated without complication., Recovers from procedure without complications.. 12:50:46 Hurricaine Gardner 1 Sprays P.O. was administered by Adia Ji RN; Per physician; 12:50:50 Refer to Anesthesia Notes for Sedation Medications was administered by Adia Ji RN; ; 12:50:53 Patient received from Med/Surg to CCL 2 Alert and oriented. Tansferred to table in Supine position. 12:50:55 Warm blankets applied, and janet hugger turned on for patient comfort. 12:50:55 Correct patient and procedure confirmed by team. 12:50:57 Signed procedure consent form obtained from patient. 12:50:58 ECG and BP/O2 sat monitors applied to patient. 12:50:59 Baseline sample Acquired. 12:51:02 Full Disclosure recording started 12:51:12 H&P Date Dictated: 04/11/2018 Within 30 days and on chart., H&P Addendum completed by physician on day of procedure. (MUST COMPLETE FOR ALL OUTPATIENTS). 12:51:15 Pre-procedure instructions explained to patient. 12:51:18 Family in waiting room. 12:51:21 Patient NPO since Midnight. 12:51:32 Patient allergic to No known allergies 12:51:41 Is patient on blood thinner?Yes 12:51:44 ACC The patient was administered the following blood thiners within the last 24 hours: Coumadin 12:51:47 Patient diabetic? Yes. 12:51:49 If diabetic: On Metformin? No 12:52:14 Snore? Yes 12:52:16 Sleep apnea? No 12:52:22 Dentures? Yes out 12:52:27 Patient pain scale 0/10 ?. 12:52:34 IV patent on arrival in right forearm with 0.9% NaCl at [facility]. 12:52:42 Lab results completed and on chart. 12:52:47 Physician paged 12:52:50 Alarms reviewed by Marlene Johnston 12:54:30 Physician arrived 12:54:49 Pietro Oliva Human Resources Office Manager present for KJ. 12:55:29 --------ALL STOP TIME OUT------ 12:55:29 Final Timeout: patient, procedure, and site verified with staff and physician. All members of the team are in agreement. 12:56:07 Farrukh Zurita MD present and monitoring patient for TIVA. 12:56:17 KJ started. 13:07:37 KJ completed. 13:08:29 Procedure ended.(Physican Out) 13:09:10 Post Procedure Pulses reassessed and unchanged 13:09:21 Post-procedure physical assessment completed. ASA score P 3 - A patient with severe systemic disease as per Farrukh Zurita MD. 13:09:26 Post procedure rhythm: unchanged. 13:09:29 Estimated blood loss: 0 ml 13:09:36 Post procedure instruction explained to patient.Patient verbalizes understanding. 13:09:49 Procedure Complication : No complications 13:18:44 Vital chart was stopped 13:18:45 See physician's report for complete and final results. 13:18:55 Report given to Med/Surg. 13:19:01 Patient transfered to Med/Surg with Bed. 13:19:08 End room use (Document Last) Signature Audit [place] Stage Time Signature Unsigned Intra-Procedure 04/24/2018 Desiree Stanley 1:19:35 PM RT(R) Signatures Monitor : Desiree Stanley Signature : RT Date : Time : [place] [place] [address]
--- NOTE | ~2018-04-10 | TEE ---
PATIENT:NICOLAS BYERS MEDICAL RECORD: [id number] LOCATION:[facility] AGE OF PATIENT: 78 ADMISSION DATE: 04/11/18 SEX: M REFERRING PHYSICIAN: INTERPRETING PHYSICIAN: ROSALINO REYNOSO MD TRANSESOPHAGEAL ECHOCARDIOGRAM Date: 04/18/18 KJ CHARGE INDICATIONS: PREMEDICATIONS: PATIENT'S RESPONSE PROCEDURE DOPPLER MEASUREMENTS: LVIT LA PA 128 RA LVOT 115 RVOT 66 Asc. Ao 173 AV Gradient Peak 11.94 AV Mean 6.77 AV Area 1.9 MV Gradient Peak 9.68 MV Mean 3.04 MV Area INTERPRETATION: Doppler: 2-D: COLOR FLOW DOPPLER NORMAL SALINE STUDY: MISCELLANOUS: DIAGNOSIS: PLAN: Kettle Girl:Kirk Barillas Nurse Anesthetist: Lee Ann BARBOSA COMMENTS: DATE OF SERVICE: 04/24/2018 After general sedation via TIVA via anesthesia, transesophageal Omniplane probe was placed into esophagus and proximal stomach without difficulty. FINDINGS: LVH is present. LV internal dimensions are normal. Wall motions are normal. EF is greater than 55%. Prosthetic tissue aortic valve is noted with good valve excursion. No evidence of vegetation. No significant AI. Left atrium is obviously dilated. Left atrial appendage is well visualized with no TRANSESOPHAGEAL ECHOCARDIOGRAM REPORT [id number] NICOLAS BYERS EA evidence of thrombus. Mitral valve is well visualized with mitral annular calcification and probably moderate MR. Right-sided chambers are grossly normal. No evidence of vegetation. Tricuspid valve; pacemaker lead is visualized with no evidence of vegetation. At the end of procedure, probe was turned posteriorly and this shows minimal atherosclerotic debris in the descending aorta. TRANSINT:[id number] Voice Confirmation ID: [id number] DOCUMENT ID: [id number] at 1505 CC: [id number] DICTATION DATE: 04/24/18 1312 CLOTH BIN PACKER: 04/24/18 1333 DIS IN 04/25/18 [address] [place] [address]
--- NOTE | ~2018-04-10 | EC ---
PATIENT:NICOLAS BYERS DATE OF SERVICE: 04/11/18 SEX: M MEDICAL RECORD: [id number] DATE OF : 42 LOCATION:[facility] AGE OF PATIENT: 78 ADMISSION DATE: 04/11/18 REFERRING PHYSICIAN: INTERPRETING PHYSICIAN: KELLY TOBAR MD ECHOCARDIOGRAM REPORT ECHO CHARGES 4 ECHO COMPLETE Date: 04/18 CLINICAL DIAGNOSIS: MRSA,HX OF AVR(BOVINE) PACEMAKER ECHOCARDIOGRAPHIC MEASUREMENTS (adult normal given) AC root (d.<3.7cm) 5.1 cm LV Septum d (<1.2 cm> 2.0 cm Valve Excursion 1.7 cm LV Septum (systole) 2.1 cm Left Atria (s.<4.0cm> 4.7 cm LVPW d(<1.2cm) 1.5 cm RV (d.<2.3cm) 5.4 cm LVPW (sytole) 2.2 cm LV diastole(<5.6CM) 6.0 cm MV E-F(>70mm/sec) cm LV systole 3.6 cm LVOT Diameter 2.0 cm MV exc.(>10mm) 1.6 cm Est.ejection fraction (50-75%) % DOPPLER: LVIT cm/sec A 39.0 cm/sec E 120 cm/sec LA cm/sec RVSP 68 mmHg LVOT 115 cm/sec AOP1/2T m/s Asc. Ao 173 cm/sec RVOT 66 cm/sec RA cm/sec PA 128 cm/sec AV Gradient Peak 11.94mmHg AV Mean 6.77 mmHg AV Area 1.9 cm MV Gradient Peak 9.68 mmHg MV Mean 3.04 mmHg MV Area cm COMMENTS: Tank Systems Maintainer: Lee Ann BARBOSA Shuttleless Loom Weaver: Kirk Tobar TAPE# PACS Pericardial Effusion N DATE OF SERVICE: 04/18/2018 PROCEDURE: Transthoracic echocardiogram. FINDINGS: 1. Left ventricle shows vksgxbka-qx-xglwms concentric left ventricular hypertrophy, ejection fraction of 55%. No obvious regional wall motion abnormalities. 2. The left atrium is moderately dilated. 3. The mitral valve shows mild mitral regurgitation. ECHOCARDIOGRAM REPORT [id number] NICOLAS BYERS 4. The aortic valve has a bovine aortic valve replacement with normal function. 5. Tricuspid valve has moderate tricuspid regurgitation, RVSP of 68 mmHg. 6. The right ventricle was moderately dilated. 7. The right atrium is ksufnisz-kh-rluibmmm dilated. 8. Pacer wire noted through the right atrium. 9. There is no pericardial effusion. CONCLUSIONS: The patient has evidence of pulmonary hypertension, moderate concentric left ventricular hypertrophy, diastolic dysfunction to the point of possible early restrictive characteristics. The patient has evidence of hypertensive heart disease. Has a bovine aortic valve replacement with normal function. TRANSINT:[id number] Voice Confirmation ID: [id number] DOCUMENT ID: [id number] KELLY TOBAR MD at 1127 CC: [id number] DICTATION DATE: 04/18/18 1124 DISPATCH CLERK: 04/18/18 1303 ADM IN [facility] [address] [place] [address]
[2018-04-11] VITALS (9 sets, daily range): BP systolic 94–173; BP diastolic 41–88; Ht 188 cm; Wt 106.1 kg
[2018-04-11 00:27] LABS: HEMATOCRIT 35.7 % (42.0-54.0); HEMOGLOBIN 12.4 g/dL (13.5-17.5); LYMPHOCYTES 7.8 % (15-50); MCH 30.6 pg (26.0-34.0); MCHC 34.7 g/dL (31.0-37.0); MCV 88.1 fL (80.0-100.0); MEAN PLATELET VOLUME 8.9 fL (7.4-10.4); NEUTROPHILS 81.3 % (40-80); RBC 4.05 10x6/uL (4.20-6.10); RDW 12.6 % (11.5-14.5)
[2018-04-11 00:30] LABS: PLATELET COUNT 168 10x3/uL (130-400)
[2018-04-11 00:33] LABS: ALBUMIN 2.9 g/dL (3.4-5.0); ANION GAP 13.2 mmol/L (8-16); BILIRUBIN - TOTAL 2.73 mg/dL (0.2-1.3); CALCIUM 8.6 mg/dL (8.5-10.1); CARBON DIOXIDE 24.8 mmol/L (21.0-32.0); CREATININE - SERUM 1.2 mg/dL (0.6-1.3); PROTEIN - SERUM 7.5 g/dL (6.4-8.2)
[2018-04-11 00:58] LABS: TROPONIN-I 0.142 ng/mL (0.000-0.060)
[2018-04-11 05:42] LABS: INR 2.04 (0.85-1.17); PROTIME 22.4 SECONDS (11.6-15.0)
[2018-04-12 03:43] VITALS: BP 166/80
[2018-04-12 06:05] LABS: INR 1.81 (0.85-1.17); PROTIME 20.4 SECONDS (11.6-15.0)
[2018-04-12 06:16] LABS: ANION GAP 13.9 mmol/L (8-16); CALCIUM 8.2 mg/dL (8.5-10.1); CARBON DIOXIDE 24.6 mmol/L (21.0-32.0); CREATININE - SERUM 1.1 mg/dL (0.6-1.3); POTASSIUM - SERUM 4.5 mmol/L (3.5-5.1)
[2018-04-12 06:20] LABS: BASOPHILS 0.2 % (0-2); EOSINOPHILS 0.4 % (0-7); HEMATOCRIT 38.8 % (42.0-54.0); HEMOGLOBIN 12.9 g/dL (13.5-17.5); IMMATURE GRANULOCYTES 0.3 % (0-5); LYMPHOCYTES 18.1 % (15-50); MCH 30.4 pg (26.0-34.0); MCHC 33.2 g/dL (31.0-37.0); MEAN PLATELET VOLUME 9.5 fL (7.4-10.4); MONOCYTES 13.8 % (2-11); NEUTROPHILS 67.2 % (40-80); PLATELET COUNT 153 10x3/uL (130-400); RBC 4.24 10x6/uL (4.20-6.10); RDW 13.4 % (11.5-14.5)
[2018-04-12 06:22] LABS: MCV 91.5 fL (80.0-100.0)
[2018-04-12 08:13] VITALS: BP 177/71
[2018-04-12 12:33] VITALS: BP 126/62
[2018-04-12 16:10] VITALS: BP 146/66
[2018-04-12 19:36] VITALS: BP 130/63
[2018-04-12 23:26] VITALS: BP 189/90
[2018-04-13 04:00] VITALS: BP 210/99
[2018-04-13 06:16] LABS: INR 1.06 (0.85-1.17); PROTIME 13.4 SECONDS (11.6-15.0)
[2018-04-13 09:00] VITALS: BP 172/81
[2018-04-13 11:46] VITALS: BP 143/67
[2018-04-13 20:01] VITALS: BP 153/69
[2018-04-14 03:45] VITALS: BP 149/71
[2018-04-14 06:36] LABS: BASOPHILS 0.2 % (0-2); EOSINOPHILS 1.2 % (0-7); HEMATOCRIT 32.8 % (42.0-54.0); HEMOGLOBIN 11.1 g/dL (13.5-17.5); IMMATURE GRANULOCYTES 0.4 % (0-5); LYMPHOCYTES 18.7 % (15-50); MCH 30.5 pg (26.0-34.0); MCHC 33.8 g/dL (31.0-37.0); MCV 90.1 fL (80.0-100.0); MEAN PLATELET VOLUME 9.7 fL (7.4-10.4); MONOCYTES 12.4 % (2-11); NEUTROPHILS 67.1 % (40-80); PLATELET COUNT 174 10x3/uL (130-400); RBC 3.64 10x6/uL (4.20-6.10); RDW 13.3 % (11.5-14.5); WBC 8.5 10x3/uL (4.8-10.8)
[2018-04-14 06:49] LABS: CALC OSMOLALITY 276 mosm/kg (275-300); CALCIUM 8.4 mg/dL (8.5-10.1); CARBON DIOXIDE 25.5 mmol/L (21.0-32.0); CHLORIDE - SERUM 103 mmol/L (98-107); GLUCOSE 122 mg/dL (74-106); SODIUM 137 mmol/L (136-145); UREA NITROGEN 17 mg/dL (7-18); eGFR NON AFRICAN AMERICAN 77 mL/min (90-120)
[2018-04-14 08:20] VITALS: BP 164/77
[2018-04-14 12:06] VITALS: BP 147/64
[2018-04-14 16:41] VITALS: BP 174/80
[2018-04-15 03:20] VITALS: BP 112/55
[2018-04-15 09:05] VITALS: BP 169/83
[2018-04-15 13:57] VITALS: BP 130/46
[2018-04-15 16:53] VITALS: BP 162/73
[2018-04-15 20:00] VITALS: BP 149/90
[2018-04-16 04:17] VITALS: BP 138/63
[2018-04-16 05:06] LABS: BASOPHILS 0.2 % (0-2); EOSINOPHILS 2.1 % (0-7); HEMATOCRIT 32.5 % (42.0-54.0); HEMOGLOBIN 10.9 g/dL (13.5-17.5); IMMATURE GRANULOCYTES 0.6 % (0-5); LYMPHOCYTES 13.2 % (15-50); MCH 29.9 pg (26.0-34.0); MCHC 33.5 g/dL (31.0-37.0); MCV 89.3 fL (80.0-100.0); MEAN PLATELET VOLUME 9.4 fL (7.4-10.4); MONOCYTES 13.6 % (2-11); NEUTROPHILS 70.3 % (40-80); PLATELET COUNT 204 10x3/uL (130-400); RBC 3.64 10x6/uL (4.20-6.10); RDW 13.5 % (11.5-14.5); WBC 8.5 10x3/uL (4.8-10.8)
[2018-04-16 05:32] LABS: CALCIUM 7.9 mg/dL (8.5-10.1); CARBON DIOXIDE 26.2 mmol/L (21.0-32.0); CHLORIDE - SERUM 103 mmol/L (98-107); SODIUM 136 mmol/L (136-145); eGFR NON AFRICAN AMERICAN 77 mL/min (90-120)
[2018-04-16 05:45] LABS: CALC OSMOLALITY 275 mosm/kg (275-300); GLUCOSE 194 mg/dL (74-106); POTASSIUM - SERUM 3.2 mmol/L (3.5-5.1); UREA NITROGEN 11 mg/dL (7-18)
[2018-04-16 05:54] LABS: INR 2.33 (0.85-1.17); PROTIME 24.9 SECONDS (11.6-15.0)
[2018-04-16 09:05] VITALS: BP 162/84
[2018-04-16 12:48] VITALS: BP 167/77
[2018-04-16 18:08] LABS: AEROBE ID Final report (())
[2018-04-16 19:19] VITALS: BP 169/75
[2018-04-17] VITALS: BP 149/65
[2018-04-17 03:42] VITALS: BP 162/91
[2018-04-17 05:22] LABS: BASOPHILS 0.4 % (0-2); EOSINOPHILS 3.4 % (0-7); HEMATOCRIT 32.6 % (42.0-54.0); HEMOGLOBIN 10.9 g/dL (13.5-17.5); IMMATURE GRANULOCYTES 0.4 % (0-5); LYMPHOCYTES 17.9 % (15-50); MCH 29.9 pg (26.0-34.0); MCHC 33.4 g/dL (31.0-37.0); MCV 89.6 fL (80.0-100.0); MEAN PLATELET VOLUME 9.2 fL (7.4-10.4); NEUTROPHILS 66.9 % (40-80); PLATELET COUNT 215 10x3/uL (130-400); RBC 3.64 10x6/uL (4.20-6.10); RDW 13.7 % (11.5-14.5); WBC 8.3 10x3/uL (4.8-10.8)
[2018-04-17 05:24] LABS: INR 1.97 (0.85-1.17); PROTIME 21.8 SECONDS (11.6-15.0)
[2018-04-17 05:29] LABS: CALC OSMOLALITY 279 mosm/kg (275-300); CALCIUM 8.2 mg/dL (8.5-10.1); CARBON DIOXIDE 27.3 mmol/L (21.0-32.0); CHLORIDE - SERUM 105 mmol/L (98-107); CREATININE - SERUM 0.9 mg/dL (0.6-1.3); POTASSIUM - SERUM 3.3 mmol/L (3.5-5.1); SODIUM 140 mmol/L (136-145); UREA NITROGEN 11 mg/dL (7-18); eGFR NON AFRICAN AMERICAN 87 mL/min (90-120)
[2018-04-17 05:37] LABS: GLUCOSE 137 mg/dL (74-106)
[2018-04-17 08:43] VITALS: BP 124/51
[2018-04-17 11:48] VITALS: BP 126/68
[2018-04-17 19:46] VITALS: BP 187/80
[2018-04-17 23:35] VITALS: BP 209/74
[2018-04-18 04:12] VITALS: BP 217/88
[2018-04-18 06:23] LABS: BASOPHILS 0.2 % (0-2); EOSINOPHILS 3.2 % (0-7); HEMATOCRIT 34.2 % (42.0-54.0); HEMOGLOBIN 11.5 g/dL (13.5-17.5); IMMATURE GRANULOCYTES 0.2 % (0-5); LYMPHOCYTES 17.5 % (15-50); MCHC 33.6 g/dL (31.0-37.0); MCV 89.3 fL (80.0-100.0); MEAN PLATELET VOLUME 9.3 fL (7.4-10.4); MONOCYTES 10.1 % (2-11); NEUTROPHILS 68.8 % (40-80); PLATELET COUNT 252 10x3/uL (130-400); RBC 3.83 10x6/uL (4.20-6.10); RDW 13.9 % (11.5-14.5); WBC 8.2 10x3/uL (4.8-10.8)
[2018-04-18 06:34] LABS: INR 2.2 (0.85-1.17); PROTIME 23.8 SECONDS (11.6-15.0)
[2018-04-18 06:39] LABS: CALC OSMOLALITY 276 mosm/kg (275-300); CARBON DIOXIDE 29.5 mmol/L (21.0-32.0); CHLORIDE - SERUM 103 mmol/L (98-107); CREATININE - SERUM 0.9 mg/dL (0.6-1.3); GLUCOSE 112 mg/dL (74-106); POTASSIUM - SERUM 3.7 mmol/L (3.5-5.1); SODIUM 139 mmol/L (136-145); eGFR NON AFRICAN AMERICAN 87 mL/min (90-120)
[2018-04-18 06:41] LABS: UREA NITROGEN 8 mg/dL (7-18)
[2018-04-18 09:49] VITALS: BP 190/96
[2018-04-18 16:07] VITALS: BP 185/85
[2018-04-18 21:17] VITALS: BP 187/75
[2018-04-19 04:50] VITALS: BP 174/84
[2018-04-19 06:53] LABS: BASOPHILS 0.1 % (0-2); EOSINOPHILS 3.3 % (0-7); HEMATOCRIT 34.5 % (42.0-54.0); HEMOGLOBIN 11.8 g/dL (13.5-17.5); IMMATURE GRANULOCYTES 0.7 % (0-5); LYMPHOCYTES 15.9 % (15-50); MCH 30.3 pg (26.0-34.0); MCHC 34.2 g/dL (31.0-37.0); MCV 88.5 fL (80.0-100.0); MEAN PLATELET VOLUME 8.7 fL (7.4-10.4); MONOCYTES 11.9 % (2-11); NEUTROPHILS 68.1 % (40-80); PLATELET COUNT 250 10x3/uL (130-400); RDW 13.9 % (11.5-14.5); WBC 7.7 10x3/uL (4.8-10.8)
[2018-04-19 07:19] LABS: CALC OSMOLALITY 277 mosm/kg (275-300); CALCIUM 8.9 mg/dL (8.5-10.1); CARBON DIOXIDE 28.8 mmol/L (21.0-32.0); CHLORIDE - SERUM 102 mmol/L (98-107); CREATININE - SERUM 0.9 mg/dL (0.6-1.3); GLUCOSE 119 mg/dL (74-106); POTASSIUM - SERUM 3.4 mmol/L (3.5-5.1); SODIUM 139 mmol/L (136-145); UREA NITROGEN 9 mg/dL (7-18); eGFR NON AFRICAN AMERICAN 87 mL/min (90-120)
[2018-04-19 07:20] LABS: INR 2.65 (0.85-1.17); PROTIME 27.5 SECONDS (11.6-15.0)
[2018-04-19 09:27] VITALS: BP 142/64
[2018-04-19 14:07] VITALS: BP 117/53
[2018-04-19 17:01] VITALS: BP 154/73
[2018-04-19 22:37] VITALS: BP 145/54
[2018-04-20 08:25] VITALS: BP 162/75
[2018-04-20 16:05] VITALS: BP 156/77
[2018-04-20 22:41] VITALS: BP 153/61
[2018-04-21 03:58] VITALS: BP 124/74
[2018-04-21 06:30] LABS: BASOPHILS 0.4 % (0-2); EOSINOPHILS 4.2 % (0-7); HEMOGLOBIN 11.9 g/dL (13.5-17.5); IMMATURE GRANULOCYTES 0.7 % (0-5); MCH 29.6 pg (26.0-34.0); MCHC 33.1 g/dL (31.0-37.0); MCV 89.6 fL (80.0-100.0); MEAN PLATELET VOLUME 8.7 fL (7.4-10.4); MONOCYTES 12.2 % (2-11); NEUTROPHILS 57.5 % (40-80); PLATELET COUNT 277 10x3/uL (130-400); RBC 4.02 10x6/uL (4.20-6.10); RDW 13.9 % (11.5-14.5); WBC 7.4 10x3/uL (4.8-10.8)
[2018-04-21 07:01] LABS: CALC OSMOLALITY 279 mosm/kg (275-300); CALCIUM 8.7 mg/dL (8.5-10.1); CHLORIDE - SERUM 103 mmol/L (98-107); GLUCOSE 140 mg/dL (74-106); POTASSIUM - SERUM 3.4 mmol/L (3.5-5.1); SODIUM 139 mmol/L (136-145); eGFR NON AFRICAN AMERICAN 77 mL/min (90-120)
[2018-04-21 07:07] LABS: UREA NITROGEN 13 mg/dL (7-18)
[2018-04-21 08:12] VITALS: BP 118/74
[2018-04-21 12:43] VITALS: BP 134/66
[2018-04-21 16:03] VITALS: BP 151/66
[2018-04-21 21:29] VITALS: BP 170/76
[2018-04-21 23:47] VITALS: BP 178/84
[2018-04-22 07:13] LABS: CALC OSMOLALITY 276 mosm/kg (275-300); CALCIUM 8.4 mg/dL (8.5-10.1); CHLORIDE - SERUM 103 mmol/L (98-107); GLUCOSE 138 mg/dL (74-106); SODIUM 138 mmol/L (136-145); UREA NITROGEN 11 mg/dL (7-18)
[2018-04-22 07:23] LABS: CARBON DIOXIDE 21.2 mmol/L (21.0-32.0); CREATININE - SERUM 0.7 mg/dL (0.6-1.3); POTASSIUM - SERUM 4.2 mmol/L (3.5-5.1); eGFR NON AFRICAN AMERICAN > 90 mL/min (90-120)
[2018-04-22 10:08] VITALS: BP 185/69
[2018-04-22 16:02] VITALS: BP 138/63
[2018-04-22 20:13] VITALS: BP 160/70
[2018-04-23 00:30] VITALS: BP 164/74
[2018-04-23 06:46] LABS: BASOPHILS 0.5 % (0-2); EOSINOPHILS 4.3 % (0-7); HEMATOCRIT 37.1 % (42.0-54.0); HEMOGLOBIN 12.2 g/dL (13.5-17.5); IMMATURE GRANULOCYTES 1.2 % (0-5); LYMPHOCYTES 27.3 % (15-50); MCHC 32.9 g/dL (31.0-37.0); MCV 91.4 fL (80.0-100.0); MONOCYTES 9.6 % (2-11); NEUTROPHILS 57.1 % (40-80); PLATELET COUNT 314 10x3/uL (130-400); RBC 4.06 10x6/uL (4.20-6.10); RDW 14.2 % (11.5-14.5); WBC 8.2 10x3/uL (4.8-10.8)
[2018-04-23 07:17] LABS: INR 1.75 (0.85-1.17); PROTIME 19.9 SECONDS (11.6-15.0)
[2018-04-23 07:19] LABS: CALC OSMOLALITY 284 mosm/kg (275-300); CHLORIDE - SERUM 103 mmol/L (98-107); GLUCOSE 151 mg/dL (74-106); POTASSIUM - SERUM 3.9 mmol/L (3.5-5.1); SODIUM 142 mmol/L (136-145); UREA NITROGEN 11 mg/dL (7-18)
[2018-04-23 07:21] LABS: CARBON DIOXIDE 31.7 mmol/L (21.0-32.0); eGFR NON AFRICAN AMERICAN 77 mL/min (90-120)
[2018-04-23 08:57] VITALS: BP 172/86
[2018-04-23 13:15] VITALS: BP 135/67
[2018-04-23 16:56] VITALS: BP 156/67
[2018-04-23 20:04] VITALS: BP 150/75
[2018-04-24 01:23] VITALS: BP 148/74
[2018-04-24 04:10] VITALS: BP 135/74
[2018-04-24 05:01] LABS: INR 1.96 (0.85-1.17); PROTIME 21.8 SECONDS (11.6-15.0)
[2018-04-24 09:31] VITALS: BP 180/78
[2018-04-24 16:44] VITALS: BP 153/75
[2018-04-24 19:48] VITALS: BP 130/66
[2018-04-25 00:35] VITALS: BP 169/84
[2018-04-25 04:31] VITALS: BP 118/63
[2018-04-25 07:50] LABS: INR 3.05 (0.85-1.17); PROTIME 30.8 SECONDS (11.6-15.0)
[2018-04-25 09:01] VITALS: BP 168/76
[2018-04-25 13:45] VITALS: BP 149/63
[2018-04-25 16:09] VITALS: BP 132/68
[2018-04-25] MEDS ORDERED: COUMADIN7.5 MG PO (17:16)
[2018-04-25] MEDS ORDERED: QUESTRAN LIG1 PACKET PO (17:17)
[2018-04-25] MEDS ORDERED: LISINOPRIL10 MG PO (17:17)
[2018-04-25] MEDS ORDERED: THIAMINE HCL50 MG PO (17:18)
[2018-04-25] MEDS ORDERED: Ancef 2 GM/Dextrose IV (17:19)
== END 2018-04-25 21:10 | DRG 616 ==
LOC: D.ER 23:33 → D.EDHOLD 04-11 02:09 → D.MS 04-11 02:09
PROVIDERS: Family Medicine; Podiatrist Foot & Ankle Surgery
PROC: 0QBP0ZZ Excision of Left Metatarsal, Open Approach (ICD-10-PCS; 2018-04-15)
PROC: 0Y6Y0Z1 Detachment at Left 5th Toe, High, Open Approach (ICD-10-PCS; principal; 2018-04-15 09:45)
DX: E11.628 Type 2 diabetes mellitus with other skin complications (principal); G93.40 Encephalopathy, unspecified; M86.8X7 Other osteomyelitis, ankle and foot; I50.30 Unspecified diastolic (congestive) heart failure; E11.69 Type 2 diabetes mellitus with other specified complication; L97.522 Non-pressure chronic ulcer of other part of left foot with fat layer exposed; B95.61 Methicillin susceptible Staphylococcus aureus infection as the cause of diseases classified elsewhere; Z79.4 Long term (current) use of insulin; E11.621 Type 2 diabetes mellitus with foot ulcer; L97.519 Non-pressure chronic ulcer of other part of right foot with unspecified severity; R21 Rash and other nonspecific skin eruption; I48.91 Unspecified atrial fibrillation; Z95.0 Presence of cardiac pacemaker; I10 Essential (primary) hypertension; E78.5 Hyperlipidemia, unspecified; T42.4X5A Adverse effect of benzodiazepines, initial encounter; E11.40 Type 2 diabetes mellitus with diabetic neuropathy, unspecified; E88.81 Metabolic syndrome and other insulin resistance; W18.30XA Fall on same level, unspecified, initial encounter; I25.10 Atherosclerotic heart disease of native coronary artery without angina pectoris; Z95.1 Presence of aortocoronary bypass graft; E87.6 Hypokalemia; I11.0 Hypertensive heart disease with heart failure; Z95.2 Presence of prosthetic heart valve; I27.20 Pulmonary hypertension, unspecified

== ENCOUNTER 2018-04-25 21:23 | Inpatient (IN) | payer MEDICARE, OTHER ==
[~2018-04-25] VITALS: Ht 188 cm; Wt 77.1 kg
--- NOTE | ~2018-04-25 | DS ---
PATIENT:NICOLAS BYERS :42 MEDICAL RECORD: [id number] DISCHARGE SUMMARY ADMISSION DATE: 04/25/18 DISCHARGE DATE: 04/27/18 This is a discharge dated 04/27/2018 from inpatient rehabilitation. PRIMARY DIAGNOSES: Decreased functional ability and ability to provide activities of daily living secondary to septic encephalopathy. SECONDARY DIAGNOSES: 1. Chronic foot wound. 2. Osteomyelitis, status post left fifth metatarsal amputation. 3. Diabetes. 4. Coronary artery disease. 5. Atrial fibrillation. 6. Hyperlipidemia. 7. Peripheral vascular disease. 8. Pulmonary hypertension. 9. Benign essential tremor. 10. Sick sinus syndrome. HOSPITAL COURSE: Full H&P is located elsewhere on the chart on this 78-year-old male who was admitted to inpatient rehab for physical therapy and occupational therapy to improve gait, transfer skills, bed mobility, and activities of daily living to a modified independent level. He was evaluated by PT and OT and their plans of care were followed. He required detention care for observation and assessment, medication administration. Fingerstick blood sugars were monitored throughout his hospital stay with appropriate adjustment in medications as needed. Electrolytes were managed by protocol. He was cooperative with therapies, progressing towards goals. Case management was involved for discharge planning. He was eating dinner and was not able to speak suddenly. Rapid response was called, they noted right-sided facial droop. He was transferred to the ER for evaluation for stroke. DISCHARGE MEDICATIONS: As per discharge medication reconciliation. DISCHARGE DISPOSITION: The patient is discharged to the ED for evaluation for stroke. TRANSINT:[id number] Voice Confirmation ID: [id number] DOCUMENT ID: [id number] Dictated By: KALEN POWERS I have interviewed/examined the above patient and agree with these documented findings. CORNELIUS ANDERSON MD CC: [id number] DICTATION DATE: 06/22/18 1448 DIRECTOR MUSIC: 06/22/18 2134 DIS IN 04/27/18 [facility] [address] [place] [address]
--- NOTE | ~2018-04-25 | RHP ---
PATIENT: NICOLAS BYERS MEDICAL RECORD: [id number] ACCOUNT: [id number] LOCATION:[facility]1118 : 42 ADMISSION DATE: 04/25/18 REHABILITATION HISTORY AND PHYSICAL EXAMINATION POST ADMISSION PHYSICIAN EXAMINATION POST-ADMISSION PHYSICAL EXAM AND HISTORY AND PHYSICAL DATE OF ADMISSION: 04/25/2018 ADMITTING DIAGNOSIS: Septic encephalopathy. HISTORY OF PRESENT ILLNESS: The patient is admitted to inpatient rehab for brain dysfunction, secondary nontraumatic. He is a 78-year-old gentleman with a history of metabolic syndrome, diabetes, peripheral vascular disease, hypertension, coronary artery disease status post coronary artery bypass grafting and AFib. He sees Dr. Muir and Dr. Silva for chronic diabetic foot wound. He states he has had several lateral foot wounds debrided at Dr. Muir's office on 04/09/2018. On 04/10/2018, he slipped and fell out of his recliner and could not get up. He remained there for 4 hours developing a temperature up to 101, when his came home, she called EMS, he was brought to the Emergency Room. On exam, he has had erythema of his lateral aspect of his left foot. He had nickel size stage II decubitus in the left lateral distal metatarsal and surrounding erythema. His right toe showed small ulceration as well as bandages placed bilaterally. Skin showed diabetic corn rash on both of his lower extremities, mid tibia to ankle, significant edema was appreciated. His blood sugar was 226. INR is 2.04. White count was 14,000 with left shift. His troponin was slightly elevated. On admit, he was confused and wanted to leave, he was shouting angrily and cursing his , which reports a very out of character for him. His initial blood cultures grew out methicillin-sensitive Staph on 1 out of 2 cultures. He had a culture grew gram-positive gala. He has been seen by podiatry and underwent a left fifth digital amputation and partial fifth metatarsal resection due to osteomyelitis. Previously, he was moderately independent with a cane in ADLs for mobility. Currently, he has had a prolonged immobility, progressive generalized weakness, especially his lower extremities affecting his exercise tolerance. He is very fatigued, has limited flexion and extension of his lower extremities. Proximal muscle strength is decreased. He is mod to max assist for ADLs, mod to max assist for sit to stand and bed to chair. He has ambulated with physical therapy with good strength but very poor balance. He is unable to stand, was done without falling backwards and stumbling. He definitely will benefit from inpatient rehabilitation. COMORBIDITIES: In this patient include osteomyelitis, fever, confusion, pulmonary hypertension, recent fall, essential hypertension, chronic aortic valvular disease, chronic AFib, metabolic syndrome, benign essential tremor, CHF, sick sinus syndrome, coronary artery disease, diabetes, methicillin-sensitive bacteremia, history of aortic valve replacement, encephalopathy, acute mental status changes and elevated troponin. PAST MEDICAL HISTORY: Significant for diabetes, TIA, vertigo, aortic stenosis, history of basal cell cancer, skin cancer, history of gallbladder disease, cellulitis, chronic diabetic foot ulcers, sick sinus syndrome, hypertension, hyperlipidemia, gastroesophageal reflux disease, pacemaker placement, coronary artery disease and AFib. HISTORY AND PHYSICAL [id number] NICOLAS BYERS PAST SURGICAL HISTORY: Includes pacemaker placement, aortic valve replacement, cataract surgery bilaterally, local wound debridement, and a carotid endarterectomy secondary to carotid stenosis. ALLERGIES: No known drug allergies. MEDICATIONS: Current medications include diclofenac 50 mg b.i.d. He is on an electrolyte replacement protocol at this time, Lovenox 100 mg b.i.d. He is on Coumadin 7.5 mg daily, thiamine 100 mg daily, sotalol 80 mg b.i.d., Pravachol 40 mg at bedtime, metoprolol 100 mg b.i.d., metformin 1000 mg b.i.d., Mag-Ox 400 mg daily, Zestril 20 mg daily, Flonase daily. He is on an intermediate resistant sliding scale with regular insulin. He is on Lantus 14 units at bedtime, Pepcid 20 mg b.i.d., Questran packet t.i.d., Ancef 2 grams t.i.d., aspirin chewable 81 mg daily, Zofran 4 mg q.4 hours p.r.n., [place] 5/325 one tab q.4 hours p.r.n. He is on Lomotil p.r.n. He is on clonidine 0.1 mg as needed for elevated blood pressure and Tylenol as needed for pain or fever. HABITS: No current alcohol or tobacco use. FAMILY HISTORY: Noncontributory. SOCIAL HISTORY: The patient hopes to return back home with his and get back to his prior level of functioning. REVIEW OF SYSTEMS: GENERAL: Does complain of weakness. HEENT: Denies cold, cough, or congestion. CARDIOVASCULAR: Denies chest pain. PHYSICAL EXAMINATION: VITAL SIGNS: Stable, afebrile. GENERAL: A somewhat confused gentleman who is in no acute distress. HEENT: Normocephalic and atraumatic. Mucosa moist. NECK: Supple. No lymphadenopathy. LUNGS: Clear at this time. HEART: Irregular rate and rhythm. ABDOMEN: Benign. EXTREMITIES: No clubbing or cyanosis. NEUROLOGIC: He is noted to be confused and have noted weakness. LABORATORY DATA: White count is 10.0, H&H of 11 and 34, and platelet count was noted to be 256. His INR is noted to be 4.69 at this time. Sodium 136, potassium 4.5, BUN and creatinine of 17 and 0.9 and blood sugar is noted to be 170. ASSESSMENT: This is a 78-year-old gentleman admitted to the rehab with a working diagnosis of encephalopathy, probably secondary to sepsis. The patient has potential to make improvement. We instituted the following multidisciplinary therapies including but not limited to physical, occupational, respiratory, speech, nutritional services, prosthetics and orthotics. Given his complex medical condition and risk for more complications, rehabilitation services cannot be provided at a low level of care such as a skilled nurse facility. HISTORY AND PHYSICAL [id number] NICOLAS BYERS PLAN: 1. Admit to [facility] rehab for intensive inpatient therapy to include the following disciplines: A. Physical therapy to improve gait, all transfer skills and bed mobility to a modified independent level. B. Occupational therapy to improve activities of daily living to a modified independent level. C. Case management to assist with discharge planning and placement options. D. Nutrition to assist with nutritional needs. E. Rehabilitation nursing to assist in monitoring the patient's underlying medical condition and to assist with any type of bowel or bladder management. 2. The patient's current medication and medical care will be continued. 3. The patient will be placed on standard fall precautions. 4. The estimated length of stay is approximately 7-10 days. 5. We will discuss this patient with care team staffing next week and will keep his family up to date of his care at this time. TRANSINT:[id number] Voice Confirmation ID: [id number] DOCUMENT ID: [id number] SANDRA notes whether there has been none or any medical/functional change since admission: - No change since prescreen. SANDRA attests patient continues to be appropriate for IRF: - Continues to be appropriate. CORNELIUS ANDERSON MD at 1502 CC: [id number] DICTATION DATE: 04/26/181712 TYPING POOL SUPERVISOR: 04/26/18 1807 DIS IN 04/27/18 [address] [address] [place] [address]
[~2018-04-25 21:23] MED LIST changes: +Ancef 2 GM/Dextrose IV; +COUMADIN7.5 MG PO; +QUESTRAN LIG1 PACKET PO; +THIAMINE HCL50 MG PO
[2018-04-25 21:53] VITALS: BMI 21.8
[2018-04-26 06:58] LABS: BASOPHILS 0.3 % (0-2); EOSINOPHILS 1.1 % (0-7); HEMATOCRIT 33.7 % (42.0-54.0); HEMOGLOBIN 10.9 g/dL (13.5-17.5); IMMATURE GRANULOCYTES 0.2 % (0-5); LYMPHOCYTES 19.1 % (15-50); MCH 29.5 pg (26.0-34.0); MCHC 32.3 g/dL (31.0-37.0); MCV 91.3 fL (80.0-100.0); MONOCYTES 10.7 % (2-11); NEUTROPHILS 68.6 % (40-80); PLATELET COUNT 256 10x3/uL (130-400); RBC 3.69 10x6/uL (4.20-6.10); RDW 14.5 % (11.5-14.5)
[2018-04-26 07:07] LABS: PROTIME 43.2 SECONDS (11.6-15.0)
[2018-04-26 07:08] LABS: INR 4.69 (0.85-1.17)
[2018-04-26 07:11] LABS: CALC OSMOLALITY 277 mosm/kg (275-300); CALCIUM 8.9 mg/dL (8.5-10.1); CARBON DIOXIDE 28.5 mmol/L (21.0-32.0); CHLORIDE - SERUM 104 mmol/L (98-107); CREATININE - SERUM 0.9 mg/dL (0.6-1.3); GLUCOSE 170 mg/dL (74-106); POTASSIUM - SERUM 4.5 mmol/L (3.5-5.1); SODIUM 136 mmol/L (136-145); UREA NITROGEN 17 mg/dL (7-18); eGFR NON AFRICAN AMERICAN 87 mL/min (90-120)
[2018-04-26 13:45] VITALS: Ht 188 cm; Wt 77.1 kg
[2018-04-26 21:00] VITALS: BP 147/49
[2018-04-27 05:28] LABS: INR 4.59 (0.85-1.17); PROTIME 42.5 SECONDS (11.6-15.0)
[2018-04-27 08:00] VITALS: BP 124/48
== END 2018-04-27 18:30 | disposition short-term general hospital (02) | DRG 71 ==
LOC: D.REHAB 21:23
PROVIDERS: Emergency Medicine
DX: G93.41 Metabolic encephalopathy (principal); M86.9 Osteomyelitis, unspecified; R78.81 Bacteremia; I50.30 Unspecified diastolic (congestive) heart failure; Z95.0 Presence of cardiac pacemaker; R41.0 Disorientation, unspecified; I27.20 Pulmonary hypertension, unspecified; I48.2 Chronic atrial fibrillation; G25.0 Essential tremor; I25.10 Atherosclerotic heart disease of native coronary artery without angina pectoris; E11.9 Type 2 diabetes mellitus without complications; I35.1 Nonrheumatic aortic (valve) insufficiency; A49.01 Methicillin susceptible Staphylococcus aureus infection, unspecified site; I11.0 Hypertensive heart disease with heart failure; E88.81 Metabolic syndrome and other insulin resistance; E11.621 Type 2 diabetes mellitus with foot ulcer; L97.522 Non-pressure chronic ulcer of other part of left foot with fat layer exposed

== ENCOUNTER 2018-04-27 18:04 | Emergency (ER) | payer MEDICARE, OTHER ==
[~2018-04-27] VITALS: Ht 188 cm; Wt 100.5 kg
[2018-04-27 18:11] VITALS: Ht 188 cm; Wt 100.5 kg
[2018-04-27 21:12] LABS: APPEARANCE CLEAR (CLEAR); BILIRUBIN NEGATIVE (NEGATIVE); COLOR YELLOW (YELLOW); GLUCOSE NEGATIVE (NEGATIVE); KETONE NEGATIVE (NEGATIVE); NITRITE NEGATIVE (NEGATIVE); PROTEIN NEGATIVE (NEGATIVE); UROBILINOGEN NORMAL (NORMAL)
[2018-04-27 21:13] LABS: BACTERIA MODERATE /hpf (NONE SEEN); EPITHELIAL CELLS 0-5 /hpf (0-5); HYALINE CAST 0-5 /lpf (NONE SEEN); MUCUS >1+ /lpf (NONE SEEN)
[2018-04-27 21:34] VITALS: BP 158/66
== END 2018-04-27 21:57 | disposition short-term general hospital (02) ==
LOC: D.ER 18:04
PROVIDERS: Family Medicine
DX: G45.9 Transient cerebral ischemic attack, unspecified (principal); F01.50 Vascular dementia, unspecified severity, without behavioral disturbance, psychotic disturbance, mood disturbance, and anxiety; R41.0 Disorientation, unspecified; E11.9 Type 2 diabetes mellitus without complications; I10 Essential (primary) hypertension; K21.9 Gastro-esophageal reflux disease without esophagitis

== ENCOUNTER → 2018-05-14 19:22 | Outpatient (CLI) | payer MEDICARE, OTHER ==
[2018-04-27 18:11] VITALS: BMI 28.4
[2018-05-14 22:11] LABS: INR 1.43 (0.85-1.17); PROTIME 16.9 SECONDS (11.6-15.0)
== END | disposition home or self-care (01) ==
LOC: D.LABREF 19:22
PROVIDERS: Family Medicine
DX: Z51.81 Encounter for therapeutic drug level monitoring (principal); Z79.01 Long term (current) use of anticoagulants

== ENCOUNTER → 2018-06-03 10:56 | Outpatient (CLI) | payer MEDICARE, OTHER ==
[2018-04-27 18:11] VITALS: BMI 28.4
[2018-06-03 11:12] LABS: BASOPHILS 0.3 % (0-2); HEMOGLOBIN 10.4 g/dL (13.5-17.5); IMMATURE GRANULOCYTES 0.2 % (0-5); LYMPHOCYTES 25.8 % (15-50); MCH 30.5 pg (26.0-34.0); MCHC 32.5 g/dL (31.0-37.0); MCV 93.8 fL (80.0-100.0); MEAN PLATELET VOLUME 9.9 fL (7.4-10.4); MONOCYTES 14.1 % (2-11); NEUTROPHILS 55.6 % (40-80); RBC 3.41 10x6/uL (4.20-6.10); RDW 15.2 % (11.5-14.5)
[2018-06-03 11:24] LABS: PLATELET COUNT 203 10x3/uL (130-400)
[2018-06-03 11:29] LABS: C-REACTIVE PROTEIN 0.6 mg/dL (0.0-0.9); CREATININE - SERUM 1.1 mg/dL (0.6-1.3)
[2018-06-03 13:21] LABS: ERYTHROCYTE SEDIMENTATION RATE 51 mm/hr (0-20)
== END | disposition home or self-care (01) ==
LOC: D.LABREF 10:56
PROVIDERS: Student in an Organized Health Care Education/Training Program
DX: M86.172 Other acute osteomyelitis, left ankle and foot (principal)

== ENCOUNTER → 2019-02-03 11:35 | Outpatient (CLI) | payer MEDICARE ==
[2018-04-27 18:11] VITALS: BMI 28.4
== END | disposition home or self-care (01) ==
LOC: D.US 11:30
PROVIDERS: ATTEND Internal Medicine Cardiovascular Disease
DX: I65.23 Occlusion and stenosis of bilateral carotid arteries (principal)

== ENCOUNTER → 2019-03-30 12:28 | Outpatient (CLI) | payer MEDICARE ==
[2018-04-27 18:11] VITALS: BMI 28.4
== END | disposition home or self-care (01) ==
LOC: D.LABREF 12:28
PROVIDERS: ATTEND Podiatrist Foot & Ankle Surgery
DX: L02.416 Cutaneous abscess of left lower limb (principal)

== ENCOUNTER 2019-04-15 17:04 | Emergency (ER) | payer MEDICARE ==
[~2019-04-15] VITALS: Ht 188 cm; Wt 110.9 kg
[2019-04-15 17:09] VITALS: Ht 188 cm; Wt 110.9 kg
[2019-04-15 17:40] LABS: BASOPHILS 0.2 % (0-2); EOSINOPHILS 5.2 % (0-7); HEMATOCRIT 39.7 % (42.0-54.0); HEMOGLOBIN 13.6 g/dL (13.5-17.5); IMMATURE GRANULOCYTES 0.6 % (0-5); LYMPHOCYTES 23.3 % (15-50); MCH 30.9 pg (26.0-34.0); MCHC 34.3 g/dL (31.0-37.0); MCV 90.2 fL (80.0-100.0); MEAN PLATELET VOLUME 9.6 fL (7.4-10.4); MONOCYTES 9.1 % (2-11); NEUTROPHILS 61.6 % (40-80); RDW 14.3 % (11.5-14.5)
[2019-04-15 17:44] LABS: PLATELET COUNT 151 10x3/uL (130-400)
[2019-04-15 17:55] LABS: INR 2.22 (0.85-1.17); PROTIME 23.9 SECONDS (11.6-15.0)
[2019-04-15 18:00] LABS: ALKALINE PHOSPHATASE 61 U/L (46-116); ALT (SGPT) 27 U/L (10-68); CALC OSMOLALITY 287 mosm/kg (275-300); CALCIUM 9.2 mg/dL (8.5-10.1); CARBON DIOXIDE 27.4 mmol/L (21.0-32.0); CHLORIDE - SERUM 102 mmol/L (98-107); CREATININE - SERUM 1.2 mg/dL (0.6-1.3); POTASSIUM - SERUM 4.5 mmol/L (3.5-5.1); PROTEIN - SERUM 8.4 g/dL (6.4-8.2); SODIUM 139 mmol/L (136-145); UREA NITROGEN 16 mg/dL (7-18); eGFR NON AFRICAN AMERICAN 62 mL/min (90-120)
[2019-04-15 18:03] LABS: GLUCOSE 258 mg/dL (74-106)
[2019-04-15 18:13] LABS: CREATINE KINASE 103 UL (21-232); MAGNESIUM - SERUM 1.6 mg/dL (1.8-2.4); THYROID STIMULATING HORMONE 2.46 uIU/mL (0.36-3.74); TROPONIN-I 0.026 ng/mL (0.000-0.060)
[2019-04-15 20:40] VITALS: BP 171/86
== END 2019-04-15 20:40 | disposition home or self-care (01) ==
LOC: D.ER 17:04
PROVIDERS: Family Medicine
DX: R47.01 Aphasia (principal); I48.91 Unspecified atrial fibrillation; I25.10 Atherosclerotic heart disease of native coronary artery without angina pectoris; E11.9 Type 2 diabetes mellitus without complications; I10 Essential (primary) hypertension

== ENCOUNTER 2019-07-28 10:38 | Outpatient (CLI) | payer MEDICARE ==
[2019-07-28] VITALS (14 sets, daily range): BP systolic 101–170; BP diastolic 52–76; Ht 188 cm; Wt 108.2 kg
[~2019-07-28] VITALS: Ht 188 cm; Wt 108.2 kg
--- NOTE | ~2019-07-28 | HEMODYNAMI ---
PATIENT:NICOLAS BYERS MEDICAL RECORD: [id number] : 42 [id number] ADMISSION DATE: 07/28/19 Generatedon:07/28/201915:11 Patient name: NICOLAS BYERS Patient #: [id number] SSN: : 1940 Date of study: 07/28/2019 Page: Of Hemodynamic Procedure Report Patient Data Patient Demographics Procedure consent was obtained First Name: NICOLAS Gender: Male Last Name: ZEESHAN : 1940 [facility] Initial: TIERNEY Age: 79 year(s) Patient #: [id number] Race: Unknown Additional ID: [id number] Contact details Address: [address] [place] [address] [address] State: [place] City: [place] Zip code: [address] Past Medical History Allergies Allergen Reaction Date Comments Reported Other allergy 07/28/2019 ambien and ativan Admission Admission Data Admission Date: 07/28/2019 Admission Time: 10:38 Height (in.): 74 BSA: 2.34 (m2) Height (cm.): 187.96 BMI: 30.56 (kg/m2) Weight (lbs.): 238 Weight (kg.): 107.95 Procedure Procedure Types Cath Procedure Peripheral Cath Diagnostic Procedure General Dentist Peripheral Procedures Abd/Extremity Extremities Left Lower Ext Arterio Procedure Description Procedure Date Procedure Date: 07/28/2019 Procedure Start Time: 13:40 Procedure Staff Name Function Mu Mendes MD Performing Physician Miryam Cruz RT Computer Compositor Jannie Kenny RN Nurse MOLLY CHAMBERS RT Scrub Procedure Data Cath Procedure Fluoroscopy Diagnostic fluoroscopy Total fluoroscopy Time: time: 21.9 min 21.9 min Diagnostic fluoroscopy Total fluoroscopy dose: 826 dose: 826 mGy mGy Contrast Material Contrast Material Type Amount (ml) Isovue 300 80 Entry Location Entry Primary Successful Side Size Upsize Upsize Entry Closure Succes sful Closure Location (Fr) 1 (Fr) 2 (Fr) Remarks Device Remarks Femoral Exoseal artery Diagnostic catheters Device Type Used For End Catheter Placement DIAGNOSTIC IMT 5Fr Catheter ([id number]) Procedure Medications Medication Administration Route Dosage Heparin Flush Bag added to field 2 bags (1000units/500ml NS) Lidocaine 1% added to field 20 Benadryl I.V. 50 mg Versed I.V. 1 mg Fentanyl I.V. 50 mcg Heparin Bolus I.V. 5000 units Versed I.V. 1 mg Fentanyl I.V. 50 mcg Heparin Bolus I.V. 2500 units Hemodynamics Rest BSA: 2.34 (m2) O2 Consumption: Estimated: 264.59 (ml/min) O2 Consumption indexed : Estimated:113.07 (ml/min/m) Heart Rate: 66 (bpm) Snapshots Pre Cath Intra NCS Post Cath Vital Signs Time Heart Resp SPO2 etCO2 NIBP (mmHg) Rhythm Pain Sedation Rate (ipm) (%) (mmHg) Status Level (bpm) 13:21:32 63 16 100 30.1 Measuring NSR 0 (11) 10(A) , No pain 13:22:02 62 13 100 31.6 195/103(159) NSR 0 (11) 10(A) , No pain 13:26:31 60 15 100 21.8 186/99(161) NSR 0 (11) 10(A) , No pain 13:31:30 67 24 100 23.3 Measuring NSR 0 (11) 10(A) , No pain 13:31:48 60 16 100 22.5 186/106(162) NSR 0 (11) 10(A) , No pain 13:36:15 60 15 100 30.1 190/102(161) NSR 0 (11) 10(A) , No pain 13:40:43 61 10 100 35.3 191/104(167) NSR 0 (11) 10(A) , No pain 13:44:06 60 14 99 26.3 189/96(162) NSR 0 (11) 8(A) , No pain 13:48:30 60 13 99 14.2 173/92(151) NSR 0 (11) 8(A) , No pain 13:52:52 60 15 100 27 186/107(154) NSR 0 (11) 8(A) , No pain 13:57:20 60 12 100 16.5 190/92(152) NSR 0 (11) 8(A) , No pain 14:01:47 60 13 99 20.3 182/100(149) NSR 0 (11) 8(A) , No pain 14:06:13 60 13 98 16.5 165/91(137) NSR 0 (11) 8(A) , No pain 14:10:37 60 12 98 0 171/77(149) NSR 0 (11) 8(A) , No pain 14:15:01 60 11 93 0 184/86(140) NSR 0 (11) 8(A) , No pain 14:19:30 60 12 97 0 174/86(133) NSR 0 (11) 8(A) , No pain 14:23:54 58 13 97 24.8 181/91(156) NSR 0 (11) 8(A) , No pain 14:28:24 60 13 94 0 176/80(132) NSR 0 (11) 8(A) , No pain 14:32:46 60 12 99 17.3 159/86(134) NSR 0 (11) 8(A) , No pain 14:37:09 60 12 98 15.8 173/76(138) NSR 0 (11) 8(A) , No pain 14:41:33 60 11 98 14.3 169/86(129) NSR 0 (11) 8(A) , No pain 14:45:57 60 13 98 34.6 174/85(145) NSR 0 (11) 8(A) , No pain 14:50:23 60 8 100 30.8 178/85(137) NSR 0 (11) 8(A) , No pain 14:54:52 62 10 100 13.5 170/79(113) NSR 0 (11) 8(A) , No pain 14:59:14 60 10 94 0 168/87(139) NSR 0 (11) 8(A) , No pain 15:03:34 60 12 100 14.3 167/90(140) NSR 0 (11) 8(A) , No pain 15:07:56 60 12 100 30.8 177/83(139) NSR 0 (11) 8(A) , No pain Medications Time Medication Route Dose Verified Delivered Reason Notes Effe ctiveness by by 13:26:33 Heparin Flush added 2 Mu Dobbins used for Bag to bags Cinthya Mendes procedure (1000units/500ml field MD BRAVO NS) 13:26:46 Lidocaine 1% added 20ml Mu Dobbins for local to vial Cinthya Mendes anesthetic field MD BRAVO 13:42:30 Benadryl I.V. 50 mg Mu Valderrama Per Cinthya Kenny RN physician 13:42:41 Versed I.V. 1 mg Mu Valderrama for Cinthya Kenny RN sedation 13:42:53 Fentanyl I.V. 50 Mu Jannie for mcg Cinthya Kenny RN sedation 14:06:50 Heparin Bolus I.V. 5000 Mu Jannie Per units Cinthya Kenny RN physician 14:24:55 Versed I.V. 1 mg Mu Jannie for Cinthya Kenny RN sedation 14:25:09 Fentanyl I.V. 50 Mu Jannie for mcg Cinthya Kenny RN sedation 14:43:23 Heparin Bolus I.V. 2500 Mu Jannie Per units Cinthya Kenny RN physician Procedure Log Time Note 12:37:53 Patient Height : 74 inches 12:38:10 Patient Weight : 238 lbs 12:39:36 Use device set IR Diagnostic 12:39:38 Tegaderm 4 x 4 (1626W) opened to sterile field. 12:39:39 Sterile Angiographic Pack opened to sterile field. 12:39:40 Bag Decanter (2002S) opened to sterile field. 12:40:10 Micropuncture VSI 4FR kit opened to sterile field. 12:40:11 BENTSON 145cm wire ([id number]) opened to sterile field. 12:40:23 SHEATH 5FR [place] (JFX684) opened to sterile field. 12:41:31 - 12:51:53 2) 60-89 Mildly reduced kidney function, and other findings (as for stage 1) point to kidney disease. 12:52:24 Maximum allowable contrast dose (3.7 X eGFR X 0.75)191.475 ml. 12:53:34 - 13:18:45 Time tracking: Regular hours (M-F 7:00 - 5:00) 13:19:10 Plan of Care:Hemodynamics will remain stable., Cardiac rhythm will remain stable., Comfort level will be maintained., Respiratory function will remain adequate., Patient/ family verbilizes understanding of procedure., Procedure tolerated without complication., Recovers from procedure without complications.. 13:19:20 Patient received from Outpatients to IR Alert and oriented. Tansferred to table in Supine position. 13:19:28 Signed procedure consent form obtained from patient. 13:19:36 H&P Date Dictated: 07/28/2019 Within 30 days and on chart., H&P Addendu m completed by physician on day of procedure. (MUST COMPLETE FOR ALL OUTPATIENTS). 13:19:40 Correct patient and procedure confirmed by team. 13:19:41 ECG and BP/O2 sat monitors applied to patient. 13:19:42 Vital chart was started 13:19:44 Baseline sample Acquired. 13:19:47 Full Disclosure recording started 13:19:47 - 13:19:49 Pre-procedure instructions explained to patient. 13:19:50 Pre-op teaching completed and patient verbalized understanding. 13:19:54 Family in waiting room. 13:19:56 Patient NPO since Midnight. 13:20:33 Patient allergic to Other allergyambien and ativan 13:21:19 Is patient on blood thinner?No 13:21:40 Patient diabetic? Yes. 13:21:49 If diabetic: On Metformin? Yes 13:21:59 If on Metformin: Last Dose? 07/27/2019 13:22:05 - 13:22:05 ----Pre-sedation anethsthesia assessment.---- 13:22:10 Previous problem with sedation/anesthesia? No ? 13:22:14 Snore? Yes 13:22:15 Sleep apnea? No 13:22:18 Deviated septum? No 13:22:20 Opens mouth fully? Yes 13:22:23 Sticks out tongue? 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 Yes not in 13:22:42 - 13:22:46 Pre procedure: right dorsailis pedis pulse Doppler 13:22:53 Pre procedure: left dorsailis pedis pulse Doppler 13:22:58 Pre procedure: right posterior tibial pulse Doppler 13:23:03 Pre procedure: left posterior tibial pulse Doppler 13:23:11 - 13:23:27 IV patent on arrival in left hand with D5/.45%NaCl at O. 13:23:35 Right groin area was prepped with chlora-prep and draped in sterile fashion 13:23:38 - 13:23:47 Fire Safety Assessment: A--An alcohol-based skin anteseptic being used preoperatively., C--Open oxygen or nitrous oxide is being used. 13:26:33 Heparin Flush Bag (1000units/500ml NS) 2 bags added to field was administered by Mu Mendes MD; used for procedure; Verbal order read back and verified. 13:26:46 Lidocaine 1% 20ml vial added to field was administered by Mu morales MD; for local anesthetic; Verbal order read back and verified. 13:38:33 Physician arrived 13:38:34 --------ALL STOP TIME OUT------ 13:38:35 Final Timeout: patient, procedure, and site verified with staff and physician. All members of the team are in agreement. 13:39:16 Procedure started. 13:40:46 Local anesthetic to right femoral artery with Lidocaine 1% by Mu Mendes MD.INITIAL ACCESS ONLY 13:40:49 Arterial access obtained using ultrasound guidance. 13:42:30 Benadryl 50 mg I.V. was administered by Jannie Kenny RN; Per physician ; Verbal order read back and verified. 13:42:41 Versed 1 mg I.V. was administered by Jannie Kenny RN; for sedation; Verbal order read back and verified. 13:42:53 Fentanyl 50 mcg I.V. was administered by Jannie Kenny RN; for sedation ; Verbal order read back and verified. 13:51:47 A DIAGNOSTIC IMT 5Fr Catheter ([id number]) was advanced over the wire an d used for . 13:56:26 CXI SUPPORT .035 135 CM STR catheter ([id number]) opened to sterile field. 13:56:47 ROADRUNNER .035 260 glide wire (F96288) opened to sterile field. 13:59:02 SHEATH 7FR Destination (RSR04) opened to sterile field. 13:59:15 INFLATOR BasixTOUCH (EZ5359) opened to sterile field. 14:01:37 SOUTH 260 wire (G72192) opened to sterile field. 14:03:18 Inflate balloon Inflation number: 1 A Evercross 5 x 4 x 135 Balloon ([id number]) was prepped and advanced across the Undefined1 , then inflated . 14:06:50 Heparin Bolus 5000 units I.V. was administered by Jannie Kenny RN; Per physician; Verbal order read back and verified. 14:24:55 Versed 1 mg I.V. was administered by Jannie Kenny RN; for sedation; Verbal order read back and verified. 14:25:09 Fentanyl 50 mcg I.V. was administered by Jannie Kenny RN; for sedation ; Verbal order read back and verified. 14:34:08 CHOICE PT Extra Support J 300cm guide wire ([id number]) opened to steril e field. 14:34:23 GLIDE WIRE ANGLE 260cm (PL2080) opened to sterile field. 14:36:42 COPILOT Valve Control (1045203) opened to sterile field. 14:40:01 Inflate balloon Inflation number: 1 A NANOCROSS ELITE 2.5MM X 80 X 150 ([id number]) was prepped and advanced across the Undefined2 , then inflated . 14:43:23 Heparin Bolus 2500 units I.V. was administered by Jannie Kenny RN; Per physician; Verbal order read back and verified. 14:48:29 Place stent Inflation Number: 2 A Stent Visi-Pro 9 x 27 x 135 was prepped and advanced across the Undefined1 . The stent was deployed . 14:52:52 St Maninder 7FR sheath opened to sterile field. 14:58:59 EXOSEAL 7Fr (EX700) opened to sterile field. 14:59:16 A sheath was inserted into the Femoral artery 14:59:16 Sheath removed intact; hemostasis achieved with Exoseal to the Femoral artery. 15:00:18 Procedure ended.(Physican Out) 15:00:40 Fluoroscopy time 21.90 minutes. 15:00:49 Flurop Dose total: 826 15:00:49 Fluoroscopy dose: 826 mGy 15:01:00 Contrast amount:Isovue 300 80ml. 15:03:35 Procedure and supply charges have been captured, reviewed, submitted an d are correct. 15:10:29 Post Procedure Pulses reassessed and unchanged 15:10:34 Report given to Outpatients. 15:11:16 Vital chart was stopped Intervention Summary Intervention Notes Time ActionType Lesion and Equipment Used Action# Pressure Duration Attributes 14:03:18 Inflate Undefined1 Evercross 5 x 4 1 0 00:00 balloon x 135 Balloon ([id number]) 14:40:01 Inflate Undefined2 NANOCROSS ELITE 1 0 00:00 balloon 2MM X 80 X 150 ([id number]) 14:48:29 Place stent Undefined1 Stent Visi-Pro 9 2 0 00:00 x 27 x 135 Device Usage Item Name Manufacture Quantity Catalog Number [facility] Praveen emi [facility] Lot# / Charge Number Stock Stock Serial# Code Tegaderm 4 x 4 3M 1 1626W [id number] 196094 487682 5 (1626W) Sterile Cardinal 1 [id number] 817913 251505 5 Angiographic Health Pack Bag Decanter Microtek 1 278435 41811 640614 5 () Medical Inc[employer] Micropuncture VSI VASCULAR 1 7266V 035264 494941 5 VSI 4FR kit SOLUTIONS BENTSON 145cm Cook Medical 1 H42088 416879 437085 5 wire (N38654) SHEATH 5FR Terumo 1 QUT099 084011 033724 641288 5 [place] (ZCP592) DIAGNOSTIC IMT [place] 1 [id number] 636165 056068 49821 5 [id number] 5Fr Catheter Scientific ([id number]) CXI SUPPORT .035 [employer] Medical 1 U99677 871527 738324 580087 5 [id number] 135 CM STR catheter (Z21445) ROADRUNNER .035 [employer] Medical 1 D80407 559828 694701 805527 5 [id number] 260 glide wire (K08075) SHEATH 7FR Terumo 1 RSR04 108441 171089 302055 5 Destination (RSR04) INFLATOR Merit 1 WI8439 114213 793465 980907 5 BasixTOUCH Medical (FZ4275) SOUTH 260 wire Cook Medical 1 Q50496 830415 94566 111196 5 [id number] (Q44645) Evercross 5 x 4 Medtronic 1 [id number] 843867 534042 578804 5 x 135 Balloon ([id number]) CHOICE PT Extra [place] 1 [id number] 493456 693077 754421 5 Support J 300cm Scientific guide wire ([id number]) GLIDE WIRE ANGLE Terumo 1 UZ1891 887852 835803 077451 5 260cm (LE9696) COPILOT Valve Bashir 1 0662298 437166 540744 907944 5 Control Vascular (4918054) NANOCROSS ELITE Medtronic 1 [id number] 944921 749746 1 2MM X 80 X 150 ([id number]) Stent Visi-Pro 9 Medtronic 1 [id number] 424341 827087 1 [id number] x 27 x 135 EXOSEAL 7Fr Cardinal 1 EX700 919252 769746 710497 5 (EX700) Health St Maninder 7FR St Maninder 1 571207 361169 262088 5 sheath Signature Audit Ramona Stage Time Signature Unsigned Intra-Procedure 07/28/2019 Miryam Cruz 3:11:12 PM RT(R) [place] [address] [place] [address]
[2019-07-28 11:13] LABS: BASOPHILS 0.3 % (0-2); EOSINOPHILS 4.6 % (0-7); HEMATOCRIT 38.1 % (42.0-54.0); HEMOGLOBIN 12.7 g/dL (13.5-17.5); IMMATURE GRANULOCYTES 0.3 % (0-5); LYMPHOCYTES 26.3 % (15-50); MCH 31.1 pg (26.0-34.0); MCHC 33.3 g/dL (31.0-37.0); MCV 93.4 fL (80.0-100.0); MEAN PLATELET VOLUME 9.5 fL (7.4-10.4); MONOCYTES 10.9 % (2-11); NEUTROPHILS 57.6 % (40-80); PLATELET COUNT 143 10x3/uL (130-400); RBC 4.08 10x6/uL (4.20-6.10); RDW 13.6 % (11.5-14.5); WBC 6.5 10x3/uL (4.8-10.8)
[2019-07-28 11:25] LABS: ANION GAP 11.8 mmol/L (8-16); CALCIUM 9.4 mg/dL (8.5-10.1); CARBON DIOXIDE 26.4 mmol/L (21.0-32.0); CREATININE - SERUM 1.1 mg/dL (0.6-1.3); POTASSIUM - SERUM 4.2 mmol/L (3.5-5.1)
[2019-07-28 11:34] LABS: APTT 36.4 SECONDS (22.8-39.4); INR 1.59 (0.85-1.17); PROTIME 18.3 SECONDS (11.6-15.0)
--- NOTE | 2019-07-28 16:00 | NUR ---
PT ARRIVED TO UNIT AROUND 1543 VIA BED. ON ROOM AIR. 96% O2 SAT. PT AWAKE AND ALERT. DENIES HAVING PAIN AT THIS TIME. RIGHT GROIN DRESSING AT INCISION SITE. LARGE HEMATOMA NOTED AND WAS MARKED BY I.R. STAFF. SANDBAG IN PLACE. PULSES ASSESSED WITH DOPPLER. RHYS EXTREMITIES WARM. PT INSTRUCTED TO KEEP RIGHT LE STRAIGHT FOR 6 HOURS. FAMILY AT BEDSIDE. BED ALARM ON. SIDE RAILS UP X 2. FALL RISK BAND PROVIDED. WILL CONTINUE TO MONITOR.
--- NOTE | 2019-07-28 16:55 | NUR ---
BLEEDING NOTED AT RIGHT GROIN CATH INSERTION SITE. ADRIEL BARAJAS RN WITH DR. RUIZ NOTIFIED. ORDERED CBC STAT.
--- NOTE | 2019-07-28 17:01 | NUR ---
CALL RECEIVED FROM DR. RUIZ. UPDATE GIVEN ON PT STATUS. BP 98/62, HR 60. ORDERED 500CC BOLUS AND NORMAL SALINE TO INFUSE AT 75ML/HR.
[2019-07-28 17:31] LABS: BASOPHILS 0.3 % (0-2); HEMATOCRIT 33.1 % (42.0-54.0); HEMOGLOBIN 10.9 g/dL (13.5-17.5); IMMATURE GRANULOCYTES 0.2 % (0-5); MCH 30.6 pg (26.0-34.0); MCHC 32.9 g/dL (31.0-37.0); MEAN PLATELET VOLUME 9.7 fL (7.4-10.4); MONOCYTES 8.9 % (2-11); NEUTROPHILS 49.6 % (40-80); PLATELET COUNT 143 10x3/uL (130-400); RBC 3.56 10x6/uL (4.20-6.10); RDW 13.3 % (11.5-14.5)
--- NOTE | 2019-07-28 17:45 | NUR ---
DR. RUIZ AT [facility]. ORDERED FEMSTOP TO BE PLACED FOR 2HRS ON RIGHT GROIN. WANTS PT TO REMAIN FLAT FOR 6HRS. ALSO ORDERED MORPHINE 2MG IV Q 2HR PRN. ORDERED TO ONLY USE MORPHINE IF ABSOLUTELY NECESSARY. GIVE TYLENOL FIRST.
[2019-07-28 17:46] LABS: WBC 9.1 10x3/uL (4.8-10.8)
--- NOTE | 2019-07-28 19:45 | NUR ---
PT AOX4, FOLLOWS ALL COMMANDS. PT LAYING FLAT WITH LEGS STRAIGHT. RT GROIN WITH BRUISING NOTED, SCROTUM WITH BRUISING. FEMSTOP IN PLACE. PEDAL PULSES PRESENT. LUNG SOUNDS CLEAR/DIMINISHED. BOWEL SOUNDS ACTIVE IN ALL QUADRANTS. WARM BLANKED PROVIDED UPON REQUEST. CALL LIGHT WITHIN PT REACH. CPOC.
--- NOTE | 2019-07-28 20:00 | NUR ---
FEMSTOP REMOVED AT THIS TIME PER ORDER. PT REMAINS LAYING FLAT. PEDAL PULSES PRESENT. NO FURTHER BLEEDING NOTED AT THIS TIME. VSS, PT DENIES PAIN AND STATES HIS IS COMFORTABLE. CALL LIGHT WITHIN PT REACH, CPOC.
--- NOTE | 2019-07-28 21:45 | NUR ---
ASSISTED PT WITH URINAL AT THIS TIME. PARTIAL LINEN CHANGE PROVIDED. VSS, DENIES PAIN. PEDAL PULSES PRESENT. RT GROIN WITH NO NEW BRUISING NOTED. DENIES FURTHER NEEDS AT THIS TIME. CALL LIGHT WITHIN PT REACH. CPOC
--- NOTE | 2019-07-28 23:45 | NUR ---
REASSESSMENT COMPLETE, SEE FLOWSHEET FOR ALL FINDINGS. RT GROIN WITH NO FURTHER BRUISING NOTED AT THIS TIME. PEDAL PULSES PRESENT. VSS, DENIES PAIN. CALL LIGHT WTIHIN PT REACH. CPOC.
[2019-07-29] VITALS (11 sets, daily range): BP systolic 122–169; BP diastolic 52–97
--- NOTE | 2019-07-29 03:18 | NUR ---
RT GROIN SOFT, PEDAL PULSES PRESENT. PT DENIES PAIN AT THIS TIME. VSS. UP TO BATHROOM FOR BM, X2 RN ASSIST. TOLERATES WELL. LINEN CHANGE COMPELTED.
--- NOTE | 2019-07-29 03:20 | NUR ---
REASSESSENT COMPLETE, SEE FLOWSHEET FOR ALL FINDINGS. PEDAL PULSES PRESENT. RT GROIN WITH NO FURTHER BRUISING NOTED. DENIES PAIN. ASSISTED WITH URINAL. CALL LIGHT WITHIN PT REACH. CPOC.
[2019-07-29 06:20] LABS: BASOPHILS 0.2 % (0-2); EOSINOPHILS 0.5 % (0-7); HEMATOCRIT 29.8 % (42.0-54.0); HEMOGLOBIN 9.8 g/dL (13.5-17.5); IMMATURE GRANULOCYTES 0.4 % (0-5); LYMPHOCYTES 19.7 % (15-50); MCH 30.2 pg (26.0-34.0); MCHC 32.9 g/dL (31.0-37.0); MEAN PLATELET VOLUME 9.3 fL (7.4-10.4); MONOCYTES 10.4 % (2-11); NEUTROPHILS 68.8 % (40-80); PLATELET COUNT 130 10x3/uL (130-400); RBC 3.24 10x6/uL (4.20-6.10); RDW 13.6 % (11.5-14.5); WBC 8.3 10x3/uL (4.8-10.8)
--- NOTE | 2019-07-29 06:41 | NUR ---
PT REFUSED CHG BATH, ONLY ALLOWING HIS FACE AND HANDS TO BE CLEANSED. PARTIAL LINEN CHANGE PROVIDED. DENIES PAIN. RT GROIN SOFT, BRUISED. PEDAL PULSES PRESENT. CALL LIGHT WITHIN PT REACH. CPOC.
--- NOTE | 2019-07-29 07:00 | NUR ---
AWAKES EASILY TO VERBAL STIMULI SKIN WARM AND DRY. RIGHT GROIN BRUSING NOTED. PURPLE AREA ON SCRUM AND PENIS. AREA AROUND DRESSING SOFT. DRESSING WITH BRIGHT RED DRAINAGE. MOVES ALL EXTREMITITES WITHOUT DIFFICULTY. PEDAL PULSES WITH DOPPLER, BOTH LEGS WARM TO TOUCH LEFT LEG WARMER THAN RIGHT. NO DISTRESS. DENIES PAIN. MONITOR PACER RHYTHM. AMBULATES TO BATHROOM TO VOID.
--- NOTE | 2019-07-29 08:00 | NUR ---
BREAKFAST SERVED. HERE. PATIENT DRANK MILK AND COFFEE. NO DISTRESS
--- NOTE | 2019-07-29 09:00 | NUR ---
DISCHARGE ORDERS RECEIVED. FAMILY HERE.
--- NOTE | 2019-07-29 10:00 | NUR ---
DISCHARGE INSTRUCTIONS REVIEWED WITH AND DAUGHTER, COPY OF DISCHARGE INSTRUCTIONS GIVEN. DISCHARGED PER WHEELCHAIR. HOME WITH
== END 2019-07-29 12:44 | disposition home or self-care (01) ==
LOC: D.SP 10:38 → D.RAD 13:00 → D.CVICU 16:23 → D.SP 07-29 12:44
PROVIDERS: ATTEND Radiology Diagnostic Radiology
DX: I70.213 Atherosclerosis of native arteries of extremities with intermittent claudication, bilateral legs (principal); I50.9 Heart failure, unspecified; E11.9 Type 2 diabetes mellitus without complications; E78.5 Hyperlipidemia, unspecified; I10 Essential (primary) hypertension; I48.91 Unspecified atrial fibrillation

== ENCOUNTER → 2020-02-04 08:48 | Outpatient (CLI) | payer MEDICARE ==
[2019-07-28 17:24] VITALS: BMI 30.6
== END | disposition home or self-care (01) ==
LOC: D.US 08:30
PROVIDERS: ATTEND Internal Medicine Cardiovascular Disease
DX: I65.23 Occlusion and stenosis of bilateral carotid arteries (principal)

== ENCOUNTER → 2020-12-19 20:02 | Outpatient (CLI) | payer MEDICARE ==
[2019-07-28 17:24] VITALS: BMI 30.6
== END | disposition home or self-care (01) ==
LOC: D.LABREF 20:02
PROVIDERS: ATTEND Podiatrist Foot & Ankle Surgery
DX: D48.5 Neoplasm of uncertain behavior of skin (principal)

== ENCOUNTER → 2021-03-31 08:40 | Outpatient (CLI) | payer MEDICARE ==
[2019-07-28 17:24] VITALS: BMI 30.6
== END | disposition home or self-care (01) ==
LOC: D.CT 08:30
PROVIDERS: ATTEND Family Medicine
DX: I70.213 Atherosclerosis of native arteries of extremities with intermittent claudication, bilateral legs (principal)